=== PATIENT | male | born 1950 | race African-American/Black ===

== ENCOUNTER 2018-12-13 12:08 | Inpatient (IN) | payer MEDICARE, MEDICAID ==
[~2018-12-13] VITALS: Ht 170.2 cm; Wt 118.5 kg
--- NOTE | 2018-12-13 12:11 | NUR ---
ED Nurse Note: pt presents to ED c/o CP that started about 2 days ago. pt reports 10/10 pain that has not gotten any better and that he has not taken anything for. pt denies SOB, N/V. EMS gave pt nitro and en route the EKG was NSR. 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
[2018-12-13 12:16] VITALS: BP 129/73
[2018-12-13] MEDS ORDERED: AVAPRO300 MG ORAL (12:26)
[2018-12-13] MEDS ORDERED: LYRICA75 M1 ORAL (12:26)
[2018-12-13] MEDS ORDERED: CATAPRES0.1 MG ORAL (12:26)
[2018-12-13] MEDS ORDERED: FUROSEMIDE20 M1 ORAL (12:26)
[2018-12-13] MEDS ORDERED: ACETAMINOPHEN500 M5 ORAL (12:26)
[2018-12-13] MEDS ORDERED: AMLODIPINE BESYL5 MG ORAL (12:26)
[2018-12-13] MEDS ORDERED: TRAMADOL HCL50 MG ORAL (12:26)
[2018-12-13] MEDS ORDERED: HEPARIN2000 UNIT/ SQ (12:26)
[2018-12-13] MEDS ORDERED: PANTOPRAZOLE SO40 MG ORAL (12:26)
[2018-12-13] MEDS ORDERED: GABAPENTIN300 MG ORAL (12:26)
[2018-12-13] MEDS ORDERED: DOCUSIL100 M1 ORAL (12:26)
--- NOTE | 2018-12-13 12:57 | NUR ---
ED Nurse Note: pt refuses to let nurse start a line until he gets numbing medication. lodocaine cream not in our pyxis. called pharmacy and they said we could pick it up in 10 min
--- NOTE | 2018-12-13 13:21 | NUR ---
ED Nurse Note: pt refuses IV until he can get local lidocaine injection. I put the lidocaine gel on pt but he says he needs the shot before an IV can be inserted. ERMD aware.
[2018-12-13 13:54] VITALS: BP 140/71
--- NOTE | 2018-12-13 14:15 | Emergency Room Report ---
History of Present Illness General Chief Complaint: Chest Pain Source: Patient, EMS Present Illness HPI 68yo M p/w L parasternal nonradiating chest pain, vague, short lived, started in NH earlier today. He denies cough, sob, f/c, n/v, diarrhea, any other complaints. He can't think of inciting or alleviating/exacerbating factors. Allergies: Coded Allergies: No Known Allergies (Unverified , 12/13/18) Patient History Past Medical History: see triage record Reviewed Nursing Documentation: PMH: Agreed; PSxH: Agreed Nursing Documentation-PMH Past Medical History: No History, Except For Hx Hypertension: Yes Hx Diabetes: Yes Review of Systems All Other Systems: negative except mentioned in HPI Physical Exam Vital Signs Date Time Temp Pulse Resp B/P (MAP) Pulse Ox O2 Delivery O2 Flow Rate FiO2 12/13/18 12:07 97.3 81 18 129/73 (91) 97 Room Air Sp02 EP Interpretation: reviewed, normal General Appearance: no apparent distress, alert, non-toxic Head: normocephalic Eyes: bilateral eye normal inspection, bilateral eye PERRL, bilateral eye EOMI ENT: normal ENT inspection, hearing grossly normal, normal pharynx, no angioedema, normal voice, moist mucus membranes Neck: normal inspection, full range of motion, supple, supple/symm/no masses Respiratory: chest non-tender, lungs clear, normal breath sounds, chest symmetrical, palpation of chest normal Cardiovascular #1: normal peripheral pulses, regular rate, rhythm, edema - 2+ B /L LE edema Cardiovascular #2: 2+ radial (L) Gastrointestinal: normal inspection, non tender, soft, no mass, no guarding, no rebound Rectal: deferred Genitourinary: normal inspection, no CVA tenderness Musculoskeletal: normal range of motion, non-tender, no calf tenderness, swelling, other - R arm congenital deformity Neurologic: alert, responsive, institutional custodian III-XII nml as tested, motor strength/tone normal, sensory intact, speech normal Psychiatric: judgement/insight normal, memory normal, mood/affect normal, no suicidal/homicidal ideation Lymphatic: no adenopathy Medical Decision Making Diagnostic Impression: Primary Impression: Chest pain ER Course Patient with vague chest pain, no stemi, d/w PMD Dr. Diggs and Dr. Sarah, will admit for further workup. EKG Diagnostic Results EKG Time: 12:18 EP Interpretation: no stemi Rate: normal Rhythm: NSR ST Segments: no acute changes ASA given to the pt in ED: Yes Rhythm Strip Diag. Results Rhythm Strip Time: 14:09 EP Interpretation: yes Rate: 80 Rhythm: NSR, no PVC's, no ectopy Chest X-Ray Diagnostic Results Chest X-Ray Diagnostic Results : Chest X-Ray Ordered: Yes # of Views/Limited/Complete: 1 View Indication: Chest Pain EP Interpretation: Yes Interpretation: no consolidation, no effusion, no pneumothorax, no acute cardiopulmonary disease Impression: No acute disease Electronically Signed by: Pancho Mark MD Last Vital Signs Date Time Temp Pulse Resp B/P (MAP) Pulse Ox O2 Delivery O2 Flow Rate FiO2 12/13/18 12:50 81 18 Room Air 12/13/18 12:07 97.3 129/73 (91) 97 Disposition: ADMITTED INPATIENT Condition: Stable Referrals: Delfino Diggs MD (PCP) PANCHO MARK M.D Dec 13, 2018 14:15
--- NOTE | 2018-12-13 14:19 | Cardiac Electrophysiology PN ---
Subjective Subjective [id number] Objective Last 24 Hour Vital Signs Date Time Temp Pulse Resp B/P (MAP) Pulse Ox O2 Delivery O2 Flow Rate FiO2 12/13/18 12:50 81 18 Room Air 12/13/18 12:16 97.3 18 129/73 97 Room Air 12/13/18 12:07 97.3 81 18 129/73 (91) 97 Room Air Isacc Sarah MD Dec 13, 2018 14:19
[2018-12-13] MEDS ORDERED: Lexiscan 0.4mg/5ml syringe IV PRN (14:23)
[2018-12-13] MEDS ORDERED: Aspirin Baby 81mg ORAL ONE (14:30)
[2018-12-13 14:55] LABS: BASOPHILS % (AUTO) 1.1 % (0.0-2.0); EOSINOPHILS % (AUTO) 1.9 % (0.0-3.0); HEMATOCRIT 41.3 % (42.0-52.0); HEMOGLOBIN 13.5 G/DL (14.2-18.0); LYMPHOCYTES % (AUTO) 27.3 % (20.0-45.0); MEAN CORPUSCULAR VOLUME 94 FL (80-99); MONOCYTES % (AUTO) 9.2 % (1.0-10.0); NEUTROPHILS % (AUTO) 60.5 % (45.0-75.0); PLATELET COUNT 292 K/UL (150-450); RED BLOOD COUNT 4.37 M/UL (4.70-6.10); RED CELL DISTRIBUTION WIDTH 14.3 % (11.6-14.8)
--- NOTE | 2018-12-13 14:57 | NUR ---
ED Nurse Note: pt belonging list has been completed, swabs for MRSA, VRE & CRE have been obtained
[2018-12-13 15:09] LABS: ANION GAP 10 mmol/L (5-15); BLOOD UREA NITROGEN 24 mg/dL (7-18); CALCIUM 8.9 MG/DL (8.5-10.1); CARBON DIOXIDE 28 MMOL/L (21-32); CHLORIDE 106 MMOL/L (98-107); POTASSIUM 4.2 MMOL/L (3.5-5.1); SODIUM 144 MMOL/L (136-145)
[2018-12-13 15:15] LABS: ALANINE AMINOTRANSFERASE 26 U/L (12-78); ALBUMIN 3.3 G/DL (3.4-5.0); ALBUMIN/GLOBULIN RATIO 0.8 (1.0-2.7); ALKALINE PHOSPHATASE 84 U/L (46-116); ASPARTATE AMINO TRANSFERASE 17 U/L (15-37); BILIRUBIN,TOTAL 0.3 MG/DL (0.2-1.0)
[2018-12-13 15:36] VITALS: BP 138/79
--- NOTE | 2018-12-13 16:22 | Cardiology Report ---
APPROVED REPORT EXAM: Two-dimensional and M-mode echocardiogram with Doppler and color Doppler. INDICATION Chest Pain M-Mode DIMENSIONS IVSd0.9 (0.7-1.1cm)Left Atrium (MM)3.1 (1.6-4.0cm) LVDd5.6 (3.5-5.6cm)Aortic Root3.9 (2.0-3.7cm) PWd1.0 (0.7-1.1cm)Aortic Cusp Exc.1.5 (1.5-2.0cm) IVSs1.5 cm LVDs3.8 (2.5-4.0cm) PWs1.2 cm Other Information Quality : Limited in the middle of study . Normal left ventricular chamber size, systolic function and wall motion to extent visualized. Left ventricular ejection fraction estimated to be 60%. Mild left ventricular hypertrophy. Anterior Echo-free space, may be due to pericardial fat or effusion. All other cardiac chamber sizes are within normal limits. Aortic valve calcification with reduced cusp excursion, c/w A.S. Mildly thickened mitral valve leaflets with normal excursion. Mild mitral annulus and aortic root calcification. Pulmonic valve not well visualized. IVC at normal size with physiologic collapse . A color flow and spectral Doppler study was performed and revealed: No aortic insufficiency . Peak aortic valve gradient of 32 mm Hg and a mean of 17 mmHg. Aortic valve area 1.0 cm2 calculated by continuity equation, c/w severe A.S. Mitral inflow indicates normal left ventricular diastolic function. Trace mitral regurgitation. Trace tricuspid regurgitation. Tricuspid systolic velocities suggests peak right ventricular systolic pressure of 26mmHg.
--- NOTE | 2018-12-13 17:03 | NUR ---
ED Nurse Note: report given to ALEXANDRIA Duran
--- NOTE | 2018-12-13 17:15 | NUR ---
ED Nurse Note: Pt. brought in to Tele. Endorsed pt. care to ALEXANDRIA freire and the belongings list
--- NOTE | 2018-12-13 17:35 | NUR ---
NURSE NOTES: Patient transferred safely to floor from ED. size maker applied and pt is SR. Belongings list verified. Patient has three cellphone, tablet, laptop, cane, 29$ grady, and two visa cards. Patient refuses to to send valuables to safe. Patient is A+Ox4, denies pain/SOB. Respirations are even and unlabored on room air. IV site is patent and intact. Bed is at lowest position, brakes engaged, siderailsx2, bed alarm on, and call light within reach. Patient is in stable condition at this time; will call doctor for admission orders.
[2018-12-13 17:40] VITALS: BP 149/95
--- NOTE | 2018-12-13 18:00 | NUR ---
NURSE NOTES: Left message with Dr. Diggs about admission orders; awaiting response.
[2018-12-13] MEDS ORDERED: traMADol 50mg tab ORAL PRN (18:30)
--- NOTE | 2018-12-13 19:33 | NUR ---
HAND-OFF: Report given to Marayna Angela RN. Pt is in stable condition; plan of care endorsed.
--- NOTE | 2018-12-13 19:50 | NUR ---
NURSE NOTES: Received pt from ALEXANDRIA Duran. Pt awake, alert, and c/o pain with IV insertion. Bed in lowest position. Call light within reach. Will continue to monitor.
[2018-12-13 20:00] VITALS: BP 148/86
--- NOTE | 2018-12-13 20:18 | Diagnostic Imaging Report ---
Indication: Chest pain Technique: Single AP view of the chest. Comparison: None. Findings: Heart is not enlarged. Aorta is tortuous in caliber. There is pulmonary vascular congestion. Bibasilar subsegmental atelectasis. No pneumothorax. No pleural effusion. No acute osseous abnormality. IMPRESSION: Pulmonary vascular congestion with bibasilar subsegmental atelectasis.
--- NOTE | 2018-12-13 20:22 | NUR ---
NURSE NOTES: Called and left a message with Dr. Diggs regarding pts request for a lidocaine shot on arm before each IV insertion. He approved. Will input order and will continue to monitor.
[2018-12-13] MEDS: Heparin 5000 units/ml inj SUBQ SCH (21:00)
[2018-12-13] MEDS: HYDROcodone/Acetamin 5/325 tab ORAL PRN (21:31)
[2018-12-14] VITALS: BP 152/85
[2018-12-14 04:00] VITALS: BP 156/91
--- NOTE | 2018-12-14 04:59 | NUR ---
NURSE NOTES: Called and left a message with Dr. Diggs regarding pts BP. Awaiting call back.
[2018-12-14] MEDS: HYDROcodone/Acetamin 5/325 tab ORAL PRN (05:28)
--- NOTE | 2018-12-14 07:30 | NUR ---
HAND-OFF: Report given to ALEXANDRIA Martinez. Pt stable.
[2018-12-14 08:00] VITALS: BP 133/67
--- NOTE | 2018-12-14 08:12 | NUR ---
NURSE NOTES: Received patient from [place] Mijares. Patient is awake in bed. NPO today for stress test this morning. Patient refusing to have bed alarm on. reminded patient re: fall precautions. and call for assistance when he needed to get up in bed. will monitor patient throughout this shift.
[2018-12-14] MEDS: Irbesartan 150mg tablet ORAL SCH (09:00)
[2018-12-14] MEDS: Heparin 5000 units/ml inj SUBQ SCH ×2 (09:00→21:00)
--- NOTE | 2018-12-14 09:00 | NUR ---
NURSE NOTES: spoke with Tate from cardiology re: patients scheduled for Lexican today. Per Tate will verify with physical security manager. patient refused lab draws from last night and this am. per shift leader Rn, patient requesting lidocaine shot prior to the lab draws but she spoke with pharmacy and that we dont do that here. Dr. Sarah in this morning and seen patient. MD made aware of patients refusal for lab draws Md speak with patient the importance of getting labs to monitor patients condition but still refused. i offered to give patient his pain pill but he refused and only wanted a shot of lidocaine. will follow.
[2018-12-14] MEDS: Aspirin Baby 81mg ORAL SCH (09:38)
[2018-12-14] MEDS: Docusate 100mg cap ORAL SCH ×2 (09:39→18:09)
[2018-12-14] MEDS: Lyrica 25mg cap ORAL SCH (09:39)
--- NOTE | 2018-12-14 10:23 | Cardiac Electrophysiology PN ---
Assessment/Plan Assessment/Plan 1. CP, first troponin negative. If FU troponin negative, will proceed with stress test. 2. Bilateral LE edema On Lasix. Echo Nl EF 3. HTN, on Norvasc Avapro and Lasix DW RN Subjective Subjective Refusing blood draw without local lidocaine. No CP in SR Objective Last 24 Hour Vital Signs Date Time Temp Pulse Resp B/P (MAP) Pulse Ox O2 Delivery O2 Flow Rate FiO2 12/14/18 10:09 97.9 12/14/18 09:38 60 133/67 12/14/18 09:00 133/67 12/14/18 08:00 97.9 60 20 133/67 (89) 97 12/14/18 08:00 66 12/14/18 04:00 97.6 75 18 156/91 (112) 100 12/14/18 04:00 72 12/14/18 00:00 98.3 74 19 152/85 (107) 95 12/14/18 00:00 78 12/13/18 21:24 148/86 12/13/18 21:00 Room Air 12/13/18 20:00 98.5 81 18 148/86 (106) 94 12/13/18 20:00 78 12/13/18 17:43 80 12/13/18 17:40 97.8 77 20 149/95 (113) 96 12/13/18 17:15 98.0 68 19 135/86 95 Room Air 12/13/18 17:08 Room Air 12/13/18 15:36 17 138/79 94 Room Air 12/13/18 13:54 16 140/71 99 Room Air 12/13/18 12:50 81 18 Room Air 12/13/18 12:16 97.3 18 129/73 97 Room Air 12/13/18 12:07 97.3 81 18 129/73 (91) 97 Room Air Intake and Output 12/13/18 12/14/18 19:00 07:00 Output Total 1200 ml Balance -1200 ml Output Urine Total 1200 ml # Voids 1 6 Laboratory Tests Test 12/13/18 14:05 White Blood Count 8.0 K/UL (4.8-10.8) Red Blood Count 4.37 M/UL (4.70-6.10) L Hemoglobin 13.5 G/DL (14.2-18.0) L Hematocrit 41.3 % (42.0-52.0) L Mean Corpuscular Volume 94 FL (80-99) Mean Corpuscular Hemoglobin 30.8 PG (27.0-31.0) Mean Corpuscular Hemoglobin Concent 32.6 G/DL (32.0-36.0) Red Cell Distribution Width 14.3 % (11.6-14.8) Platelet Count 292 K/UL (150-450) Mean Platelet Volume 5.5 FL (6.5-10.1) L Neutrophils (%) (Auto) 60.5 % (45.0-75.0) Lymphocytes (%) (Auto) 27.3 % (20.0-45.0) Monocytes (%) (Auto) 9.2 % (1.0-10.0) Eosinophils (%) (Auto) 1.9 % (0.0-3.0) Basophils (%) (Auto) 1.1 % (0.0-2.0) Sodium Level 144 MMOL/L (136-145) Potassium Level 4.2 MMOL/L (3.5-5.1) Chloride Level 106 MMOL/L (98-107) Carbon Dioxide Level 28 MMOL/L (21-32) Anion Gap 10 mmol/L (5-15) Blood Urea Nitrogen 24 mg/dL (7-18) H Creatinine 1.0 MG/DL (0.55-1.30) Estimat Glomerular Filtration Rate > 60 mL/min (>60) Glucose Level 103 MG/DL (74-106) Calcium Level 8.9 MG/DL (8.5-10.1) Total Bilirubin 0.3 MG/DL (0.2-1.0) Aspartate Amino Transf (AST/SGOT) 17 U/L (15-37) Alanine Aminotransferase (ALT/SGPT) 26 U/L (12-78) Alkaline Phosphatase 84 U/L (46-116) Troponin I 0.000 ng/mL (0.000-0.056) Pro-B-Type Natriuretic Peptide 146 pg/mL (0-125) H Total Protein 7.4 G/DL (6.4-8.2) Albumin 3.3 G/DL (3.4-5.0) L Globulin 4.1 g/dL Albumin/Globulin Ratio 0.8 (1.0-2.7) L Microbiology Date/Time Source Procedure Growth Status 12/13/18 14:50 Rectum Received Objective HEENT: No JVD LUNGS: Clear CVS: RRR no GRM ABDOMEN: Soft EXT 2 plus edema Isacc Sarah MD Dec 14, 2018 10:23
--- NOTE | 2018-12-14 11:00 | NUR ---
NURSE NOTES: Spoke with Tate of cardiology. stated stress test wont be done today per Dr. Ochoa. patient must have 2 negative troponins prior to the test but pt refusing lab draws. Dr. Sarah made aware. Patient resumed on PO diet. will follow.
[2018-12-14 12:00] VITALS: BP 160/95
[2018-12-14 14:37] LABS: APPEARANCE,URINE CLEAR; BILIRUBIN, URINE NEGATIVE (NEGATIVE); COLOR,URINE PALE YELLOW; GLUCOSE, URINE (UA) NEGATIVE (NEGATIVE); KETONES,URINE NEGATIVE (NEGATIVE); LEUKOCYTE ESTERASE ,URINE 1+ (NEGATIVE); NITRITE,URINE NEGATIVE (NEGATIVE); PH,URINE 7 (4.5-8.0); PROTEIN,URINE NEGATIVE (NEGATIVE); UROBILINOGEN,URINE NORMAL MG/DL (0.0-1.0)
[2018-12-14 16:00] VITALS: BP 133/78
--- NOTE | 2018-12-14 19:59 | NUR ---
HAND-OFF: Patient stable. Plan of care endorsed.
[2018-12-14 20:00] VITALS: BP 143/79
--- NOTE | 2018-12-14 20:00 | NUR ---
NURSE NOTES: Got report from Michelle IBRAHIM. Pt in stable condition. Denies any pain. No s/s of distress or discomfort noted. Pt resting in bed comfortably. Bed in low and locked position, call light within reach bedside table within reach. Continue to monitor.
[2018-12-14] MEDS: Tamsulosin 0.4mg cap ORAL SCH (21:19)
[2018-12-15] VITALS: BP 150/82
[2018-12-15 04:00] VITALS: BP 143/79
--- NOTE | 2018-12-15 07:00 | NUR ---
HAND-OFF: Report given to [place] IBRAHIM. Endorsed plan of care.
[2018-12-15 08:00] VITALS: BP_SYST 135; BP_SYST 146; BP_DIAS 69; BP_DIAS 87
--- NOTE | 2018-12-15 08:08 | NUR ---
NURSE NOTES: Received patient alert, awake, in bed. Refusing labs at this time . patient kept NPO for stress test. No SOB/respi distress noted. Will continue to monitor patient.
[2018-12-15] MEDS: Irbesartan 150mg tablet ORAL SCH (09:00)
[2018-12-15] MEDS ORDERED: Lidocaine 1% 10mg/ml/Epi 0.005mg/ml 30ml vial INJ SCH (09:00)
[2018-12-15] MEDS ORDERED: Lidocaine 1% 10mg/ml/Epi 0.005mg/ml 30ml vial INJ PRN (09:00)
--- NOTE | 2018-12-15 09:07 | Cardiac Electrophysiology PN ---
Assessment/Plan Assessment/Plan 1. CP, first troponin negative. If repeat troponin negative, will proceed with stress test today. 2. Bilateral LE edema On Lasix. Echo Nl EF 3. HTN, on Norvasc, Avapro and Lasix 4. Noncompliant DW RN Subjective Subjective Still refusing blood draw without local lidocaine. No CP in SR. Stress test postponed to today as pt refused second blood draw for troponin Objective Last 24 Hour Vital Signs Date Time Temp Pulse Resp B/P (MAP) Pulse Ox O2 Delivery O2 Flow Rate FiO2 12/15/18 08:44 Room Air 12/15/18 08:00 97.5 72 18 146/87 (106) 97 12/15/18 08:00 97.7 62 18 135/69 (91) 96 12/15/18 04:00 98.2 83 18 143/79 (100) 96 12/15/18 04:00 77 12/15/18 00:00 98.1 81 18 150/82 (104) 95 12/15/18 00:00 81 12/14/18 21:00 Room Air 12/14/18 20:00 99.0 79 18 143/79 (100) 95 12/14/18 20:00 79 12/14/18 16:00 97.7 81 18 133/78 (96) 96 12/14/18 16:00 99 12/14/18 12:00 67 12/14/18 12:00 97.2 67 20 160/95 (116) 97 12/14/18 10:09 97.9 12/14/18 09:38 60 133/67 Intake and Output 12/14/18 12/15/18 19:00 07:00 Intake Total 120 ml 120 ml Output Total 600 ml 1500 ml Balance -480 ml -1380 ml Intake Oral 120 ml 120 ml Output Urine Total 600 ml 1500 ml # Voids 8 Laboratory Tests Test 12/14/18 14:00 Urine Color Pale yellow Urine Appearance Clear Urine pH 7 (4.5-8.0) Urine Specific [place] 1.010 (1.005-1.035) Urine Protein Negative (NEGATIVE) Urine Glucose (UA) Negative (NEGATIVE) Urine Ketones Negative (NEGATIVE) Urine Blood 1+ (NEGATIVE) H Urine Nitrite Negative (NEGATIVE) Urine Bilirubin Negative (NEGATIVE) Urine Urobilinogen Normal MG/DL (0.0-1.0) Urine Leukocyte Esterase 1+ (NEGATIVE) H Urine RBC 2-4 /HPF (0 - 0) H Urine WBC 0-2 /HPF (0 - 0) Urine Squamous Epithelial Cells Occasional /LPF Urine Bacteria Few /HPF (NONE) Microbiology Date/Time Source Procedure Growth Status 12/13/18 14:50 Nasal Nares MRSA Culture - Final NO METHICILLIN RESISTANT STAPH AUREUS... Complete 12/13/18 14:50 Rectum - Final NO CARBAPENEM-RESISTANT ENTEROBACTERI... Complete 12/13/18 14:50 Rectum Received Objective HEENT: No JVD LUNGS: Clear CVS: RRR no GRM ABDOMEN: Soft EXT 2 plus edema Isacc Sarah MD Dec 15, 2018 09:07
--- NOTE | 2018-12-15 09:11 | Urology Progress Note ---
Assessment/Plan Assessment/Plan: 1. Penile skin adhesions and mild balanitis. 2. Lower urinary tract symptoms. 3. Benign prostatic hypertrophy. 4. Rule out neurogenic bladder. 5. Microhematuria. monitor clinically flomax added check PVR consider release of penile adhesions at some point consider renal imaging study cysto later Subjective Allergies: Coded Allergies: No Known Allergies (Unverified , 12/13/18) Subjective all noted, feels fair Objective Last 24 Hour Vital Signs Date Time Temp Pulse Resp B/P (MAP) Pulse Ox O2 Delivery O2 Flow Rate FiO2 12/15/18 08:44 Room Air 12/15/18 08:00 97.5 72 18 146/87 (106) 97 12/15/18 08:00 97.7 62 18 135/69 (91) 96 12/15/18 04:00 98.2 83 18 143/79 (100) 96 12/15/18 04:00 77 12/15/18 00:00 98.1 81 18 150/82 (104) 95 12/15/18 00:00 81 12/14/18 21:00 Room Air 12/14/18 20:00 99.0 79 18 143/79 (100) 95 12/14/18 20:00 79 12/14/18 16:00 97.7 81 18 133/78 (96) 96 12/14/18 16:00 99 12/14/18 12:00 67 12/14/18 12:00 97.2 67 20 160/95 (116) 97 12/14/18 10:09 97.9 12/14/18 09:38 60 133/67 Intake and Output 12/14/18 12/15/18 19:00 07:00 Intake Total 120 ml 120 ml Output Total 600 ml 1500 ml Balance -480 ml -1380 ml Intake Oral 120 ml 120 ml Output Urine Total 600 ml 1500 ml # Voids 8 Microbiology Date/Time Source Procedure Growth Status 12/13/18 14:50 Nasal Nares MRSA Culture - Final NO METHICILLIN RESISTANT STAPH AUREUS... Complete 12/13/18 14:50 Rectum - Final NO CARBAPENEM-RESISTANT ENTEROBACTERI... Complete Current Medications Medications (Trade) Dose Ordered Sig/Alise Route PRN Reason Start Time Stop Time Status Last Admin Dose Admin Acetaminophen (Tylenol) 650 mg Q6H PRN ORAL Mild Pain/Temp > 100.5 12/13/18 18:30 01/12/19 18:29 Acetaminophen/ Hydrocodone Bitart ([place] 5/325) 1 tab Q6H PRN ORAL Severe Pain (Pain Scale 7-10) 12/13/18 18:30 12/20/18 18:29 12/14/18 05:28 Amlodipine Besylate (Norvasc) 5 mg DAILY ORAL 12/14/18 09:00 01/13/19 08:59 12/14/18 09:38 Aspirin (ASA) 81 mg DAILY ORAL 12/14/18 09:00 01/13/19 08:59 12/14/18 09:38 Clonidine HCl (Catapres Tab) 0.1 mg Q8H PRN ORAL for sbp >160 12/14/18 05:15 01/13/19 05:14 Docusate Sodium (Colace) 100 mg TWICE A DAY ORAL 12/14/18 09:00 01/13/19 08:59 12/14/18 18:09 Furosemide (Lasix) 40 mg EVERY 12 HOURS IV 12/14/18 21:00 01/13/19 20:59 12/14/18 21:20 Gabapentin (Neurontin) 300 mg Q8HR ORAL 12/13/18 22:00 01/12/19 21:59 12/14/18 21:43 Heparin Sodium (Porcine) (Heparin 5000 units/ml) 5,000 units EVERY 12 HOURS SUBQ 12/13/18 21:00 01/12/19 20:59 Irbesartan (Avapro) 300 mg DAILY ORAL 12/14/18 09:00 01/13/19 08:59 12/14/18 09:00 Lidocaine (Xylocaine 5% cream) 1 applic NEEDED PRN TOPIC For Pain 12/15/18 06:15 01/14/19 06:14 Lidocaine/ Epinephrine (Lidocaine 1% 10mg/ml/Epi 0.005mg/ml 30ml vial) 30 ml NEEDED PRN INJ To Patient Comfort 12/15/18 09:00 12/15/18 10:00 Magnesium Hydroxide (Mom) 30 ml BIDPRN PRN ORAL Constipation 12/13/18 18:30 01/12/19 18:29 Pantoprazole (Protonix) 40 mg DAILY ORAL 12/14/18 09:00 01/13/19 08:59 12/14/18 09:39 Pregabalin (Lyrica) 25 mg DAILY ORAL 12/14/18 09:00 01/13/19 08:59 12/14/18 09:39 Tamsulosin HCl (Flomax) 0.4 mg BEDTIME ORAL 12/14/18 21:00 01/13/19 20:59 12/14/18 21:19 Tramadol HCl (Ultram) 50 mg Q8H PRN ORAL Moderate Pain (Pain Scale 4-6) 12/13/18 18:30 12/20/18 18:29 12/14/18 01:15 Laboratory Tests 12/14/18 14:00: Urine Color Pale yellow, Urine Appearance Clear, Urine pH 7, Urine Specific [place] 1.010, Urine Protein Negative, Urine Glucose (UA) Negative, Urine Ketones Negative, Urine Blood 1+H, Urine Nitrite Negative, Urine Bilirubin Negative, Urine Urobilinogen Normal, Urine Leukocyte Esterase 1+H, Urine RBC 2- 4H, Urine WBC 0-2, Urine Squamous Epithelial Cells Occasional, Urine Bacteria Few Height (Feet): 5 Height (Inches): 7.00 Weight (Pounds): 250 Objective exam stable Ryan Beatty MD Dec 15, 2018 09:11
[2018-12-15] MEDS: Aspirin Baby 81mg ORAL SCH (09:43)
[2018-12-15] MEDS: Lyrica 25mg cap ORAL SCH (09:44)
[2018-12-15] MEDS: Docusate 100mg cap ORAL SCH ×2 (09:45→17:35)
[2018-12-15] MEDS: Heparin 5000 units/ml inj SUBQ SCH ×2 (09:47→21:00)
--- NOTE | 2018-12-15 10:01 | NUR ---
CASE MANAGEMENT:REVIEW 68 YR OLD MALE BIBA FROM [facility] CC: CHEST PAIN SI: ACS 97.4 81 18 129/73 97% ON RA BUN+24 TROPONIN(-) IS: NTG SPRAY X2 TREATER ASA PO TREATER ASA PO CXR : TO TELEMETRY DCP; RETURN TO [facility]
[2018-12-15 10:37] LABS: BASOPHILS % (AUTO) 0.8 % (0.0-2.0); EOSINOPHILS % (AUTO) 1.7 % (0.0-3.0); HEMATOCRIT 45.2 % (42.0-52.0); HEMOGLOBIN 14.7 G/DL (14.2-18.0); LYMPHOCYTES % (AUTO) 29.2 % (20.0-45.0); MEAN CORPUSCULAR VOLUME 94 FL (80-99); MONOCYTES % (AUTO) 7.5 % (1.0-10.0); NEUTROPHILS % (AUTO) 60.9 % (45.0-75.0); PLATELET COUNT 289 K/UL (150-450); RED BLOOD COUNT 4.82 M/UL (4.70-6.10); RED CELL DISTRIBUTION WIDTH 14.3 % (11.6-14.8); WHITE BLOOD COUNT 6.6 K/UL (4.8-10.8)
[2018-12-15 10:53] LABS: ANION GAP 4 mmol/L (5-15); BLOOD UREA NITROGEN 18 mg/dL (7-18); CALCIUM 8.4 MG/DL (8.5-10.1); CARBON DIOXIDE 31 MMOL/L (21-32); CHLORIDE 107 MMOL/L (98-107); CREATININE 0.9 MG/DL (0.55-1.30); POTASSIUM 3.7 MMOL/L (3.5-5.1); SODIUM 142 MMOL/L (136-145)
--- NOTE | 2018-12-15 11:53 | Consultation ---
DATE OF CONSULTATION: 12/13/2018 CARDIOLOGY CONSULTATION CONSULTING PHYSICIAN: Isacc Sarah M.D. REFERRING PHYSICIAN: Delfino Diggs M.D. REASON FOR CONSULTATION: Chest pain. 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 The patient denies any nausea, vomiting, diaphoresis, syncope, or presyncope. The patient came to the emergency room and the blood pressure was 129/73 with pulse of 81 and respirations of 18. Cardiology consultation was obtained for further evaluation and management. REVIEW OF SYSTEMS: Negative other than what was mentioned in the history of present illness. PAST MEDICAL HISTORY: As mentioned above. FAMILY HISTORY: Noncontributory. SOCIAL HISTORY: He lives in a assisted. He does not smoke or drink alcohol. PHYSICAL EXAMINATION: VITAL SIGNS: Show blood pressure 129/73, pulse 81, and respirations 18. He is afebrile. HEAD AND NECK: Showed no JVD. LUNGS: Decreased breath sounds on the right. CARDIOVASCULAR: Shows regular, S1 and S2 with no gallop or murmur. ABDOMEN: Soft. EXTREMITIES: No pitting edema. He has a right arm congenital deformity. DIAGNOSTIC DATA: His EKG showed sinus rhythm with left anterior fascicular block and first-degree AV block. Also, he has T-wave inversion in Labs are pending at this time. ASSESSMENT AND PLAN: 1. Chest pain. EKG does not show any acute ST-T wave abnormalities. Troponins are pending. We will get an echocardiogram as well. The patient may need a stress test for further evaluation. 2. Hypertension. Resume the patient's Norvasc 5 mg daily, clonidine 0.5 mg t.i.d., and Lasix 20 mg b.i.d., as well as Avapro 300 mg daily. 3. Neuropathic pain, on Lyrica. 4. We will also get a chest x-ray on him to evaluate for hyperplasia of the lung that he described. Thank you very much for allowing me to participate in the care of this patient. Please do not hesitate to contact me for any questions regarding my evaluation. Isacc Sarah M.D. DR: CINDA JOB#: [id number] CC:
--- NOTE | 2018-12-15 11:54 | Consultation ---
DATE OF CONSULTATION: 12/14/2018 CONSULTING PHYSICIAN: Ryan Beatty M.D. REFERRING PHYSICIAN: Delfino Diggs M.D. REASON FOR CONSULTATION: Evaluation of penile discomfort. HISTORY OF PRESENT ILLNESS: The patient is a 68-year-old gentleman. He was admitted to the hospital because of vague chest pain. He also has had a recent fall with some back pain. He has a history of circumcision about a year ago in [place]. He is complaining of some discomfort in the penile area with penile skin adhesions. He also has some voiding difficulty, feels that he has some stream and straining. PAST MEDICAL HISTORY: Significant for above, also history of hypertension, diabetes. PAST SURGICAL HISTORY: As above. CURRENT MEDICATIONS: In the hospital, the patient is on Lasix, Norvasc, Colace, Avapro, Protonix, Lyrica, aspirin, Catapres, Neurontin, heparin, Ultram, MOM. ALLERGIES: No known drug allergies. SOCIAL HISTORY: The patient is currently a nonsmoker. REVIEW OF SYSTEMS: As above. FAMILY HISTORY: Noncontributory. PHYSICAL EXAMINATION: GENERAL: Elderly male, in no acute distress. VITAL SIGNS: Temperature 97.2, blood pressure , pulse 67, respirations 20. HEENT: Normocephalic. NECK: Supple. ABDOMEN: Soft. GENITOURINARY: Circumcised phallus. There is some adhesions of the shaft skin to the virk of the glans dorsally, no significant erythema. RECTAL: Firm prostate about 40 g. EXTREMITIES: No clubbing or cyanosis. LABORATORY DATA: BUN is 24, creatinine 1.0. White count is 8.1, hemoglobin 13.5. There is no UAs. DIAGNOSTIC IMAGING STUDIES: The patient had a chest x-ray and an echocardiogram, which were reviewed. IMPRESSION: 1. Penile skin adhesions and mild balanitis. 2. Lower urinary tract symptoms. 3. Benign prostatic hypertrophy. 4. Rule out neurogenic bladder. PLAN AND DISCUSSION: Again the patient does have some skin adhesions of his penile shaft and glans secondary to circumcision. At some point, these can be released and this can be done electively. Topical steroids may also help. He has some lower urinary tract symptoms secondary to BPH, possible neurogenic bladder. At this time, I will start him on Flomax empirically. UA will be obtained. Any further recommendations will be forthcoming. Thank you, Dr. Diggs, for asking me to see this patient in consultation. Ryan Beatty M.D. DR: [place] JOB#: [id number] CC:
--- NOTE | 2018-12-15 11:54 | Consultation ---
DATE OF CONSULTATION: 12/14/2018 GASTROENTEROLOGY CONSULTATION CONSULTING PHYSICIAN: Evelina Jeffers M.D. CHIEF COMPLAINT: I was asked to see this patient by Dr. Delfino Diggs for evaluation of hematochezia. HISTORY OF PRESENT ILLNESS: The patient is a pleasant 68-year-old man with multiple medical problems who was admitted with chest pain and he is being seen by pharmaceutical engineer. The patient states the chest pain was parasternal, nonradiating, and short lived started at retirement. He denies any nausea, vomiting, or heartburn, but he does complain of some intermittent hematochezia. He has never had a colonoscopy. Breathing is painless. PAST MEDICAL HISTORY: History of hypertension, history of diabetes, and history of arthritis. FAMILY HISTORY: Positive for breast cancer in mother and colon cancer in father. SOCIAL HISTORY: The patient is single. He has 7 children. He does not smoke or drink alcohol. MEDICATIONS: Lasix, [place], Tylenol, aspirin, heparin, Ultram, Lyrica, Protonix, Avapro, Neurontin, Norvasc, Colace. REVIEW OF SYSTEMS: Otherwise negative. PHYSICAL EXAMINATION: GENERAL: This is a pleasant man, seen in his room. HEENT: Normocephalic and atraumatic. Sclerae anicteric. Oropharynx clear. NECK: Supple. CHEST: Clear to auscultation. CARDIOVASCULAR: Revealed a regular rate. ABDOMEN: Soft. Good bowel sounds. EXTREMITIES: Revealed 1+ edema bilaterally. NEUROLOGIC: Grossly nonfocal. LABORATORY DATA: Noted. ASSESSMENT: This patient presents with intermittent hematochezia of unclear etiology. The differential diagnosis most notably includes hemorrhoidal disorders. However, the patient has not had a colonoscopy and therefore an examination of the entire colon will be appropriate. The indications, risks, alternatives, and possible complications of the procedure were explained to the patient and he wishes to proceed. RECOMMENDATIONS: 1. Cardiology followup, evaluation, and clearance. 2. PRN laxative. 3. Follow laboratory parameters. 4. Colonoscopy once cleared from a cardiac standpoint. Thank you for asking me to participate in the care of this patient. Evelina Jeffers M.D. DR: DELMI JOB#: [id number] CC: NORMA
--- NOTE | 2018-12-15 11:55 | History and Physical Report ---
DATE OF ADMISSION: 12/13/2018 HISTORY OF PRESENT ILLNESS: The patient is a very pleasant unfortunate 68-year-old gentleman with history of hypertension, history of hypoplasia, history of cellulitis of his lower extremities in the past, history of L4 compression fracture who resides at [facility]. The patient called me yesterday in the office stating he has been having chest pain and wanted to go to the hospital. The patient was transferred to the hospital for further evaluation. He admits to intermittent chest pain. No radiation to his arms. No nausea or vomiting. No pleuritic symptoms. No cough. No fevers or chills. No abdominal pain. He does admit to having irritation in his penis at the site that he has previously had his circumcision. 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 SOCIAL HISTORY: The patient recently moved to [place]. Denies any smoking or alcohol use. He currently resides in a [facility], [facility]. ALLERGIES: No known. MEDICATIONS: Please see his reconciled med list. PHYSICAL EXAMINATION: GENERAL: He is well developed, well nourished. Currently in no apparent distress. VITAL SIGNS: Blood pressure 133/78, temperature 97.7, pulse 81, respirations 18, pulse ox 96 to 97% on room air. HEENT: Head is normocephalic, atraumatic. Pupils are equal, reactive to light. Extraocular muscles are intact. Eyes are anicteric. NECK: Supple. No JVP. No bruits. LUNGS: Clear. HEART: Regular rate and rhythm without murmurs, rubs, or gallops. ABDOMEN: Soft. Positive bowel sounds. Nondistended. Nontender. EXTREMITIES: No clubbing, cyanosis. He has got trace edema. NEUROLOGIC: Nonfocal. Right arm, he has got hypoplasia. GENITOURINARY: He is circumcised. LABORATORY DATA: Labs reveal a white count of 8, hemoglobin 13.5, hematocrit 41.3, platelet count 292. Sodium 144, potassium 4.2, chloride 106, bicarb 28, BUN 24, creatinine 1.02. Troponin 0.00. ProBNP 146. Total protein 7.4. Urine with 3 to 4 rbc's, 0 to 2 wbc's, 1+ leukocyte esterase, 2+ blood. EKG noted. Chest x-ray reveals pulmonary vascular congestion, bibasilar segmental atelectasis. ASSESSMENT AND PLAN: The patient is an unfortunate 68-year-old gentleman presented to the emergency room. He was sent in from his rehab secondary to complaints of chest pain. Denies any shortness of breath. No nausea, vomiting, or diaphoresis. The patient will be admitted to a monitored bed. I have ordered lower extremity venous Dopplers. I will place him on DVT and ulcer prophylaxis. I also ordered D-dimer on him. I have asked Cardiology consultation to see him from Dr. Sarah. The patient also complains of irritation at the circumcision site and I have asked Dr. Beatty from Urology see him as well. The patient should be on DVT and ulcer prophylaxis. Delfino Diggs M.D. DR: AGATHA JOB#: [id number] CC:
[2018-12-15 12:00] VITALS: BP 150/98
--- NOTE | 2018-12-15 12:00 | Consultation ---
History of Present Illness General Date patient seen: Dec 15, 2018 Time patient seen: 11:30 Chief Complaint: Chest Pain Present Illness HPI Pt seen bedside for acute chest pain. He denies any pain to B/L L/E. He denies any open wounds to B/L L/E. Allergies: Coded Allergies: No Known Allergies (Unverified , 12/13/18) Medication History Scheduled Acetaminophen (Acetaminophen), 1,000 MG ORAL TID, (Reported) Amlodipine Besylate* (Amlodipine Besylate*), 5 MG ORAL DAILY, (Reported) Clonidine Hcl* (Catapres*), 0.1 MG ORAL TID, (Reported) Docusate Sodium* (Docusil*), 100 MG ORAL TWICE A DAY, (Reported) Furosemide* (Lasix*), 20 MG ORAL BID, (Reported) Gabapentin* (Gabapentin*), 300 MG ORAL TID, (Reported) Heparin Sodium,Porcine/Ns/Pf (Heparin), 5,000 UNIT SQ BID, (Reported) Irbesartan* (Avapro*), 300 MG ORAL DAILY, (Reported) Pantoprazole* (Pantoprazole*), 40 MG ORAL DAILY, (Reported) Pregabalin* (Lyrica*), 25 MG ORAL DAILY, (Reported) Scheduled PRN Tramadol Hcl* (Ultram*), 50 MG ORAL TID PRN for For Pain, (Reported) Patient History Healthcare decision maker Resuscitation status Full Code Advanced Directive on File No Physical Exam Physical Exam Narrative Focused B/L L/E. Derm: No open wounds, ascending erythema, or edema is noted. Interdigital spaces intact. Vasc: +2/4 DP/PT pulses. FILLING HAULER WEAVING intact. Neuro: SILT intact. MSK: No gross deformities noted. Last 24 Hour Vital Signs Date Time Temp Pulse Resp B/P (MAP) Pulse Ox O2 Delivery O2 Flow Rate FiO2 12/15/18 10:14 97.5 12/15/18 09:44 72 146/87 12/15/18 09:00 146/87 12/15/18 08:44 Room Air 12/15/18 08:00 97.5 72 18 146/87 (106) 97 12/15/18 08:00 71 12/15/18 08:00 97.7 62 18 135/69 (91) 96 12/15/18 04:00 98.2 83 18 143/79 (100) 96 12/15/18 04:00 77 12/15/18 00:00 98.1 81 18 150/82 (104) 95 12/15/18 00:00 81 12/14/18 21:00 Room Air 12/14/18 20:00 99.0 79 18 143/79 (100) 95 12/14/18 20:00 79 12/14/18 16:00 97.7 81 18 133/78 (96) 96 12/14/18 16:00 99 12/14/18 12:00 67 12/14/18 12:00 97.2 67 20 160/95 (116) 97 Intake and Output 12/14/18 12/15/18 19:00 07:00 Intake Total 120 ml 120 ml Output Total 600 ml 1500 ml Balance -480 ml -1380 ml Intake Oral 120 ml 120 ml Output Urine Total 600 ml 1500 ml # Voids 8 Laboratory Tests Test 12/14/18 14:00 12/15/18 10:25 Urine Color Pale yellow Urine Appearance Clear Urine pH 7 (4.5-8.0) Urine Specific Ackerman 1.010 (1.005-1.035) Urine Protein Negative (NEGATIVE) Urine Glucose (UA) Negative (NEGATIVE) Urine Ketones Negative (NEGATIVE) Urine Blood 1+ (NEGATIVE) H Urine Nitrite Negative (NEGATIVE) Urine Bilirubin Negative (NEGATIVE) Urine Urobilinogen Normal MG/DL (0.0-1.0) Urine Leukocyte Esterase 1+ (NEGATIVE) H Urine RBC 2-4 /HPF (0 - 0) H Urine WBC 0-2 /HPF (0 - 0) Urine Squamous Epithelial Cells Occasional /LPF Urine Bacteria Few /HPF (NONE) White Blood Count 6.6 K/UL (4.8-10.8) Red Blood Count 4.82 M/UL (4.70-6.10) Hemoglobin 14.7 G/DL (14.2-18.0) Hematocrit 45.2 % (42.0-52.0) Mean Corpuscular Volume 94 FL (80-99) Mean Corpuscular Hemoglobin 30.4 PG (27.0-31.0) Mean Corpuscular Hemoglobin Concent 32.5 G/DL (32.0-36.0) Red Cell Distribution Width 14.3 % (11.6-14.8) Platelet Count 289 K/UL (150-450) Mean Platelet Volume 5.6 FL (6.5-10.1) L Neutrophils (%) (Auto) 60.9 % (45.0-75.0) Lymphocytes (%) (Auto) 29.2 % (20.0-45.0) Monocytes (%) (Auto) 7.5 % (1.0-10.0) Eosinophils (%) (Auto) 1.7 % (0.0-3.0) Basophils (%) (Auto) 0.8 % (0.0-2.0) D-Dimer 1.02 mg/L FEU (0.00-0.49) H Sodium Level 142 MMOL/L (136-145) Potassium Level 3.7 MMOL/L (3.5-5.1) Chloride Level 107 MMOL/L (98-107) Carbon Dioxide Level 31 MMOL/L (21-32) Anion Gap 4 mmol/L (5-15) L Blood Urea Nitrogen 18 mg/dL (7-18) Creatinine 0.9 MG/DL (0.55-1.30) Estimat Glomerular Filtration Rate > 60 mL/min (>60) Glucose Level 101 MG/DL (74-106) Calcium Level 8.4 MG/DL (8.5-10.1) L Troponin I 0.012 ng/mL (0.000-0.056) Pro-B-Type Natriuretic Peptide 125 pg/mL (0-125) Height (Feet): 5 Height (Inches): 7.00 Weight (Pounds): 250 Medications Current Medications Medications (Trade) Dose Ordered Sig/Alise Route PRN Reason Start Time Stop Time Status Last Admin Dose Admin Acetaminophen (Tylenol) 650 mg Q6H PRN ORAL Mild Pain/Temp > 100.5 12/13/18 18:30 01/12/19 18:29 Acetaminophen/ Hydrocodone Bitart ([place] 5/325) 1 tab Q6H PRN ORAL Severe Pain (Pain Scale 7-10) 12/13/18 18:30 12/20/18 18:29 12/14/18 05:28 Amlodipine Besylate (Norvasc) 5 mg DAILY ORAL 12/14/18 09:00 01/13/19 08:59 12/15/18 09:44 Aspirin (ASA) 81 mg DAILY ORAL 12/14/18 09:00 01/13/19 08:59 12/15/18 09:43 Clonidine HCl (Catapres Tab) 0.1 mg Q8H PRN ORAL for sbp >160 12/14/18 05:15 01/13/19 05:14 Docusate Sodium (Colace) 100 mg TWICE A DAY ORAL 12/14/18 09:00 01/13/19 08:59 12/15/18 09:45 Furosemide (Lasix) 40 mg EVERY 12 HOURS IV 12/14/18 21:00 01/13/19 20:59 12/15/18 09:45 Gabapentin (Neurontin) 300 mg Q8HR ORAL 12/13/18 22:00 01/12/19 21:59 12/14/18 21:43 Heparin Sodium (Porcine) (Heparin 5000 units/ml) 5,000 units EVERY 12 HOURS SUBQ 12/13/18 21:00 01/12/19 20:59 12/15/18 09:47 Irbesartan (Avapro) 300 mg DAILY ORAL 12/14/18 09:00 01/13/19 08:59 12/15/18 09:00 Lidocaine (Xylocaine 5% cream) 1 applic NEEDED PRN TOPIC For Pain 12/15/18 06:15 01/14/19 06:14 12/15/18 10:36 Magnesium Hydroxide (Mom) 30 ml BIDPRN PRN ORAL Constipation 12/13/18 18:30 01/12/19 18:29 Pantoprazole (Protonix) 40 mg DAILY ORAL 12/14/18 09:00 01/13/19 08:59 12/15/18 09:43 Pregabalin (Lyrica) 25 mg DAILY ORAL 12/14/18 09:00 01/13/19 08:59 12/15/18 09:44 Tamsulosin HCl (Flomax) 0.4 mg BEDTIME ORAL 12/14/18 21:00 01/13/19 20:59 12/14/18 21:19 Tramadol HCl (Ultram) 50 mg Q8H PRN ORAL Moderate Pain (Pain Scale 4-6) 12/13/18 18:30 12/20/18 18:29 12/14/18 01:15 Assessment/Plan Assessment/Plan: A: - Acute Chest Pain - CHF - DM - Arthritis P: - Pt seen and evaluated. - Discuss findings with patient. - No open wounds are noted, no acute SOI are noted. - Will order B/L Foot XR, R/O OM or deep soft tissue infection. - B/L foot XR ordered. - Cont Tx per specialists. - No acute surgical intervention required at this time. - Podiatry will cont to monitor. Graham Payne DPM Dec 15, 2018 12:00
--- NOTE | 2018-12-15 12:51 | NUR ---
NURSE NOTES: Dr. Dexter and Dewey notified Stress test not able to be done at this time per NH tech because of not enough isotope.
--- NOTE | 2018-12-15 14:17 | NUR ---
NURSE NOTES: stress test unable to be performed due to facility maintenance technician unable to bring the right amount of isotope due to weight of the patient. Therefore, pt will have to stay here until tuesday.
[2018-12-15 16:00] VITALS: BP 108/73
--- NOTE | 2018-12-15 17:41 | General Progress Note ---
Assessment/Plan Assessment/Plan: Assessment - chest pain - CAD/FL - Hematochezia - HTN - DM Recommendations - po as tolerated - await completion of cardiac w/u - colonoscopy once above all completed - Subjective Allergies: Coded Allergies: No Known Allergies (Unverified , 12/13/18) Subjective feel OK some constipation stress test postponed for Tuesday Objective Last 24 Hour Vital Signs Date Time Temp Pulse Resp B/P (MAP) Pulse Ox O2 Delivery O2 Flow Rate FiO2 12/15/18 16:00 97.7 86 18 108/73 (85) 94 12/15/18 12:00 73 12/15/18 12:00 98.2 78 18 150/98 (115) 97 12/15/18 10:14 97.5 12/15/18 09:44 72 146/87 12/15/18 09:00 146/87 12/15/18 08:44 Room Air 12/15/18 08:00 97.5 72 18 146/87 (106) 97 12/15/18 08:00 71 12/15/18 08:00 97.7 62 18 135/69 (91) 96 12/15/18 04:00 98.2 83 18 143/79 (100) 96 12/15/18 04:00 77 12/15/18 00:00 98.1 81 18 150/82 (104) 95 12/15/18 00:00 81 12/14/18 21:00 Room Air 12/14/18 20:00 99.0 79 18 143/79 (100) 95 12/14/18 20:00 79 Intake and Output 12/14/18 12/15/18 19:00 07:00 Intake Total 120 ml 120 ml Output Total 600 ml 1500 ml Balance -480 ml -1380 ml Intake Oral 120 ml 120 ml Output Urine Total 600 ml 1500 ml # Voids 8 Laboratory Tests 12/15/18 10:25: White Blood Count 6.6, Red Blood Count 4.82, Hemoglobin 14.7, Hematocrit 45.2, Mean Corpuscular Volume 94, Mean Corpuscular Hemoglobin 30.4, Mean Corpuscular Hemoglobin Concent 32.5, Red Cell Distribution Width 14.3, Platelet Count 289, Mean Platelet Volume 5.6L, Neutrophils (%) (Auto) 60.9, Lymphocytes (%) (Auto) 29.2, Monocytes (%) (Auto) 7.5, Eosinophils (%) (Auto) 1.7, Basophils (%) (Auto ) 0.8, D-Dimer 1.02H, Sodium Level 142, Potassium Level 3.7, Chloride Level 107 , Carbon Dioxide Level 31, Anion Gap 4L, Blood Urea Nitrogen 18, Creatinine 0.9 , Estimat Glomerular Filtration Rate > 60, Glucose Level 101, Calcium Level 8.4L , Troponin I 0.012, Pro-B-Type Natriuretic Peptide 125 Height (Feet): 5 Height (Inches): 7.00 Weight (Pounds): 250 Objective Obese AA man NCAT supple CTA RR abd soft NT ND no edema Evelina Jeffers MD Dec 15, 2018 17:41
--- NOTE | 2018-12-15 19:30 | NUR ---
HAND-OFF: Report given to ALEXANDRIA Rocha. Endorsed pending stress test.
[2018-12-15 20:00] VITALS: BP 139/88
[2018-12-15] MEDS: Tamsulosin 0.4mg cap ORAL SCH (21:39)
--- NOTE | 2018-12-15 23:51 | General Progress Note ---
Assessment/Plan Assessment/Plan: cp dicomfort penis hematochezia cad awating stress test urology eval apprecaited will need colonspy when cardiac cleared dvt an dulcer rpohylaxis Subjective Allergies: Coded Allergies: No Known Allergies (Unverified , 12/13/18) Subjective co dicomfor penis wwhere his foresikin was removed no chest painor sob had some hematochezia before Objective Last 24 Hour Vital Signs Date Time Temp Pulse Resp B/P (MAP) Pulse Ox O2 Delivery O2 Flow Rate FiO2 12/15/18 16:00 97.7 86 18 108/73 (85) 94 12/15/18 16:00 85 12/15/18 12:00 73 12/15/18 12:00 98.2 78 18 150/98 (115) 97 12/15/18 10:14 97.5 12/15/18 09:44 72 146/87 12/15/18 09:00 146/87 12/15/18 08:44 Room Air 12/15/18 08:00 97.5 72 18 146/87 (106) 97 12/15/18 08:00 71 12/15/18 08:00 97.7 62 18 135/69 (91) 96 12/15/18 04:00 98.2 83 18 143/79 (100) 96 12/15/18 04:00 77 12/15/18 00:00 98.1 81 18 150/82 (104) 95 12/15/18 00:00 81 Intake and Output 12/14/18 12/15/18 19:00 07:00 Intake Total 120 ml 120 ml Output Total 600 ml 1500 ml Balance -480 ml -1380 ml Intake Oral 120 ml 120 ml Output Urine Total 600 ml 1500 ml # Voids 8 Laboratory Tests 12/15/18 10:25: White Blood Count 6.6, Red Blood Count 4.82, Hemoglobin 14.7, Hematocrit 45.2, Mean Corpuscular Volume 94, Mean Corpuscular Hemoglobin 30.4, Mean Corpuscular Hemoglobin Concent 32.5, Red Cell Distribution Width 14.3, Platelet Count 289, Mean Platelet Volume 5.6L, Neutrophils (%) (Auto) 60.9, Lymphocytes (%) (Auto) 29.2, Monocytes (%) (Auto) 7.5, Eosinophils (%) (Auto) 1.7, Basophils (%) (Auto ) 0.8, D-Dimer 1.02H, Sodium Level 142, Potassium Level 3.7, Chloride Level 107 , Carbon Dioxide Level 31, Anion Gap 4L, Blood Urea Nitrogen 18, Creatinine 0.9 , Estimat Glomerular Filtration Rate > 60, Glucose Level 101, Calcium Level 8.4L , Troponin I 0.012, Pro-B-Type Natriuretic Peptide 125 Height (Feet): 5 Height (Inches): 7.00 Weight (Pounds): 250 General Appearance: WD/WN, no apparent distress Neck: supple Cardiovascular: normal rate Respiratory/Chest: lungs clear Abdomen: soft Delfino Diggs MD Dec 15, 2018 23:51
[2018-12-16] VITALS: BP 154/94
[2018-12-16 04:00] VITALS: BP 150/98
--- NOTE | 2018-12-16 07:00 | NUR ---
HAND-OFF: Report given to Damon IBRAHIM. Endorsed plan of care.
[2018-12-16 08:05] VITALS: BP 165/106
--- NOTE | 2018-12-16 08:15 | Urology Progress Note ---
Assessment/Plan Assessment/Plan: 1. Penile skin adhesions and mild balanitis. 2. Lower urinary tract symptoms. 3. Benign prostatic hypertrophy. 4. Rule out neurogenic bladder. 5. Microhematuria. monitor clinically flomax added consider release of penile adhesions at some point consider renal imaging study cysto later renal fxn stable Subjective Allergies: Coded Allergies: No Known Allergies (Unverified , 12/13/18) Subjective all noted, feels fair, PVR reported zero cc Objective Last 24 Hour Vital Signs Date Time Temp Pulse Resp B/P (MAP) Pulse Ox O2 Delivery O2 Flow Rate FiO2 12/16/18 08:05 98.0 69 20 165/106 (125) 98 12/16/18 04:00 86 12/16/18 04:00 98.0 74 16 150/98 (115) 99 12/16/18 00:00 77 12/16/18 00:00 98.4 68 16 154/94 (114) 98 12/15/18 21:00 Room Air 12/15/18 20:00 98.7 75 16 139/88 (105) 97 12/15/18 20:00 85 12/15/18 16:00 97.7 86 18 108/73 (85) 94 12/15/18 16:00 85 12/15/18 12:00 73 12/15/18 12:00 98.2 78 18 150/98 (115) 97 12/15/18 10:14 97.5 12/15/18 09:44 72 146/87 12/15/18 09:00 146/87 12/15/18 08:44 Room Air Intake and Output 12/15/18 12/16/18 19:00 07:00 Intake Total 360 ml Output Total 600 ml Balance -240 ml Intake Oral 360 ml Output Urine Total 600 ml Post Void Residual 0 ml Bladder Scan Volume Amount <10 ml # Voids 3 Microbiology Date/Time Source Procedure Growth Status 12/13/18 14:50 Nasal Nares MRSA Culture - Final NO METHICILLIN RESISTANT STAPH AUREUS... Complete 12/13/18 14:50 Rectum - Final NO CARBAPENEM-RESISTANT ENTEROBACTERI... Complete Current Medications Medications (Trade) Dose Ordered Sig/Alise Route PRN Reason Start Time Stop Time Status Last Admin Dose Admin Acetaminophen (Tylenol) 650 mg Q6H PRN ORAL Mild Pain/Temp > 100.5 12/13/18 18:30 01/12/19 18:29 Acetaminophen/ Hydrocodone Bitart ([place] 5/325) 1 tab Q6H PRN ORAL Severe Pain (Pain Scale 7-10) 12/13/18 18:30 12/20/18 18:29 12/14/18 05:28 Amlodipine Besylate (Norvasc) 5 mg DAILY ORAL 12/14/18 09:00 01/13/19 08:59 12/15/18 09:44 Aspirin (ASA) 81 mg DAILY ORAL 12/14/18 09:00 01/13/19 08:59 12/15/18 09:43 Clonidine HCl (Catapres Tab) 0.1 mg Q8H PRN ORAL for sbp >160 12/14/18 05:15 01/13/19 05:14 Docusate Sodium (Colace) 100 mg TWICE A DAY ORAL 12/14/18 09:00 01/13/19 08:59 12/15/18 17:35 Furosemide (Lasix) 40 mg EVERY 12 HOURS IV 12/14/18 21:00 01/13/19 20:59 12/15/18 21:39 Gabapentin (Neurontin) 300 mg Q8HR ORAL 12/13/18 22:00 01/12/19 21:59 12/15/18 21:38 Heparin Sodium (Porcine) (Heparin 5000 units/ml) 5,000 units EVERY 12 HOURS SUBQ 12/13/18 21:00 01/12/19 20:59 12/15/18 09:47 Irbesartan (Avapro) 300 mg DAILY ORAL 12/14/18 09:00 01/13/19 08:59 12/15/18 09:00 Lidocaine (Xylocaine 5% cream) 1 applic NEEDED PRN TOPIC For Pain 12/15/18 06:15 01/14/19 06:14 12/15/18 10:36 Magnesium Hydroxide (Mom) 30 ml BIDPRN PRN ORAL Constipation 12/13/18 18:30 01/12/19 18:29 Pantoprazole (Protonix) 40 mg DAILY ORAL 12/14/18 09:00 01/13/19 08:59 12/15/18 09:43 Pregabalin (Lyrica) 25 mg DAILY ORAL 12/14/18 09:00 01/13/19 08:59 12/15/18 09:44 Tamsulosin HCl (Flomax) 0.4 mg BEDTIME ORAL 12/14/18 21:00 01/13/19 20:59 12/15/18 21:39 Tramadol HCl (Ultram) 50 mg Q8H PRN ORAL Moderate Pain (Pain Scale 4-6) 12/13/18 18:30 12/20/18 18:29 12/14/18 01:15 Laboratory Tests 12/15/18 10:25: White Blood Count 6.6, Red Blood Count 4.82, Hemoglobin 14.7, Hematocrit 45.2, Mean Corpuscular Volume 94, Mean Corpuscular Hemoglobin 30.4, Mean Corpuscular Hemoglobin Concent 32.5, Red Cell Distribution Width 14.3, Platelet Count 289, Mean Platelet Volume 5.6L, Neutrophils (%) (Auto) 60.9, Lymphocytes (%) (Auto) 29.2, Monocytes (%) (Auto) 7.5, Eosinophils (%) (Auto) 1.7, Basophils (%) (Auto ) 0.8, D-Dimer 1.02H, Sodium Level 142, Potassium Level 3.7, Chloride Level 107 , Carbon Dioxide Level 31, Anion Gap 4L, Blood Urea Nitrogen 18, Creatinine 0.9 , Estimat Glomerular Filtration Rate > 60, Glucose Level 101, Calcium Level 8.4L , Troponin I 0.012, Pro-B-Type Natriuretic Peptide 125 Height (Feet): 5 Height (Inches): 7.00 Weight (Pounds): 250 Objective exam stable Ryan Beatty MD Dec 16, 2018 08:15
[2018-12-16] MEDS: Aspirin Baby 81mg ORAL SCH (08:29)
[2018-12-16] MEDS: Irbesartan 150mg tablet ORAL SCH (08:29)
[2018-12-16] MEDS: Lyrica 25mg cap ORAL SCH (08:30)
[2018-12-16] MEDS: Docusate 100mg cap ORAL SCH ×2 (08:30→18:35)
[2018-12-16] MEDS: Heparin 5000 units/ml inj SUBQ SCH ×2 (08:35→22:00)
--- NOTE | 2018-12-16 08:41 | NUR ---
NURSE NOTES: Mr Grant was sleeping when received report from ALEXANDRIA Rocha. By 8 am patient awake, aox4 with calm, cooperative affect eating breakfast. Voided clear yellow in urinal. BP noted elevated--gave morning anti-HTN meds per eMar. Bed in low, locked position with call vincent in reach. Foot bilat xR being done now. Dr Beatty at bedside this morning. Cont'd with plan of care.
--- NOTE | 2018-12-16 09:19 | Diagnostic Imaging Report ---
EXAM: XR Right Foot Complete, 3 or More Views CLINICAL HISTORY: PAIN TECHNIQUE: Frontal, lateral and oblique views of the right foot. COMPARISON: X-rays of the contralateral left foot obtained the same date. FINDINGS: Bones joints: Subtle cortical irregularity along the medial margin of the great toe proximal and distal phalanges adjacent to the interphalangeal joint. Mild degenerative narrowing within the metatarsophalangeal joints. No visible fracture or dislocation. No osseous erosions. Incidental note of accessory ossicle adjacent to the lateral margin of the cuboid. Soft tissues: Unremarkable. No radiopaque foreign body. IMPRESSION: Subtle cortical irregularity along the medial margin of the great toe proximal and distal phalanges adjacent to the interphalangeal joint. This may be related to degenerative change versus subtle age- indeterminate fracture. Recommend correlation with point tenderness.
--- NOTE | 2018-12-16 09:23 | Diagnostic Imaging Report ---
EXAM: XR Left Foot Complete, 3 or More Views CLINICAL HISTORY: PAIN TECHNIQUE: Frontal, lateral and oblique views of the left foot. COMPARISON: X-rays of the contralateral right foot obtained the same date FINDINGS: Bones joints: No visible fracture or dislocation. No osseous erosions. Joint spaces appear unremarkable. Incidental note of accessory ossicles adjacent to the lateral margin of the cuboid. Soft tissues: Unremarkable. No radiopaque foreign body. IMPRESSION: No acute findings.
--- NOTE | 2018-12-16 09:35 | General Progress Note ---
Assessment/Plan Assessment/Plan: Assessment - chest pain - CAD/MO - Hematochezia - HTN - DM Recommendations - po as tolerated - await completion of cardiac w/u - colonoscopy once above all completed Subjective ROS Limited/Unobtainable: Yes Allergies: Coded Allergies: No Known Allergies (Unverified , 12/13/18) Objective Last 24 Hour Vital Signs Date Time Temp Pulse Resp B/P (MAP) Pulse Ox O2 Delivery O2 Flow Rate FiO2 12/16/18 09:29 98.0 12/16/18 08:30 69 165/106 12/16/18 08:29 165/106 12/16/18 08:05 98.0 69 20 165/106 (125) 98 12/16/18 04:00 86 12/16/18 04:00 98.0 74 16 150/98 (115) 99 12/16/18 00:00 77 12/16/18 00:00 98.4 68 16 154/94 (114) 98 12/15/18 21:00 Room Air 12/15/18 20:00 98.7 75 16 139/88 (105) 97 12/15/18 20:00 85 12/15/18 16:00 97.7 86 18 108/73 (85) 94 12/15/18 16:00 85 12/15/18 12:00 73 12/15/18 12:00 98.2 78 18 150/98 (115) 97 12/15/18 09:44 72 146/87 Intake and Output 12/15/18 12/16/18 19:00 07:00 Intake Total 360 ml Output Total 600 ml Balance -240 ml Intake Oral 360 ml Output Urine Total 600 ml Post Void Residual 0 ml Bladder Scan Volume Amount <10 ml # Voids 3 Laboratory Tests 12/15/18 10:25: White Blood Count 6.6, Red Blood Count 4.82, Hemoglobin 14.7, Hematocrit 45.2, Mean Corpuscular Volume 94, Mean Corpuscular Hemoglobin 30.4, Mean Corpuscular Hemoglobin Concent 32.5, Red Cell Distribution Width 14.3, Platelet Count 289, Mean Platelet Volume 5.6L, Neutrophils (%) (Auto) 60.9, Lymphocytes (%) (Auto) 29.2, Monocytes (%) (Auto) 7.5, Eosinophils (%) (Auto) 1.7, Basophils (%) (Auto ) 0.8, D-Dimer 1.02H, Sodium Level 142, Potassium Level 3.7, Chloride Level 107 , Carbon Dioxide Level 31, Anion Gap 4L, Blood Urea Nitrogen 18, Creatinine 0.9 , Estimat Glomerular Filtration Rate > 60, Glucose Level 101, Calcium Level 8.4L , Troponin I 0.012, Pro-B-Type Natriuretic Peptide 125 Height (Feet): 5 Height (Inches): 7.00 Weight (Pounds): 250 General Appearance: no apparent distress EENT: normal ENT inspection Neck: normal alignment Cardiovascular: normal rate Respiratory/Chest: decreased breath sounds Abdomen: normal bowel sounds, non tender, soft Extremities: non-tender Brian Currie MD Dec 16, 2018 09:35
[2018-12-16 12:00] VITALS: BP 139/86
--- NOTE | 2018-12-16 12:54 | NUR ---
NURSE NOTES: Patient aox4 with calm affect. Voided multiple times after lasix given this morning--clear yellow in urinal. Currently up in chair after working with PT eating lunch. R big toe is focal point of pain on foot per patient--Stated "on a scale of 1 to 10, it's a 20". Patient appears calm and watching tv. medicated per APR. cont'd to monitor.
[2018-12-16] MEDS: HYDROcodone/Acetamin 5/325 tab ORAL PRN (13:01)
--- NOTE | 2018-12-16 15:41 | NUR ---
PT note PT angel completed, treatment initiated. Patient has back pain, muscle weakness and and decreased balance. Patient needs PT to increase his muscle strength and balance and decrease pain to improve his safety in mobility and gait. Addendum: 12/16/18 at 1541 by KELSIE SINCLAIR PT Amended: Links added.
[2018-12-16 15:50] VITALS: BP 105/73
--- NOTE | 2018-12-16 16:14 | Cardiac Electrophysiology PN ---
Assessment/Plan Assessment/Plan 1. CP, troponins are negative, will proceed with stress test Tuesday 2. Bilateral LE edema On Lasix. Echo Nl EF 3. HTN, on Norvasc, Avapro and Lasix 4. Noncompliant DW RN Subjective Subjective No CP in SR. Stress test postponed to Tuesday due to lack of Nuclear material Objective Last 24 Hour Vital Signs Date Time Temp Pulse Resp B/P (MAP) Pulse Ox O2 Delivery O2 Flow Rate FiO2 12/16/18 15:50 97.7 81 20 105/73 (84) 97 12/16/18 13:32 98.4 12/16/18 12:00 98.4 75 20 139/86 (103) 97 12/16/18 12:00 84 12/16/18 10:09 98.0 12/16/18 09:00 Room Air 12/16/18 08:30 69 165/106 12/16/18 08:29 165/106 12/16/18 08:05 98.0 69 20 165/106 (125) 98 12/16/18 08:00 70 12/16/18 04:00 86 12/16/18 04:00 98.0 74 16 150/98 (115) 99 12/16/18 00:00 77 12/16/18 00:00 98.4 68 16 154/94 (114) 98 12/15/18 21:00 Room Air 12/15/18 20:00 98.7 75 16 139/88 (105) 97 12/15/18 20:00 85 Intake and Output 12/15/18 12/16/18 19:00 07:00 Intake Total 360 ml Output Total 600 ml Balance -240 ml Intake Oral 360 ml Output Urine Total 600 ml Post Void Residual 0 ml Bladder Scan Volume Amount <10 ml # Voids 3 Objective HEENT: No JVD LUNGS: Clear CVS: RRR no GRM ABDOMEN: Soft EXT 2 plus edema Isacc Sarah MD Dec 16, 2018 16:14
--- NOTE | 2018-12-16 19:42 | NUR ---
NURSE NOTES: Report given to ALEXANDRIA Sanchez. patient aox4 , up in chair and talking on phone.
[2018-12-16 20:00] VITALS: BP 100/81
--- NOTE | 2018-12-16 20:31 | NUR ---
NURSE NOTES: Received patient from ALEXANDRIA Jose, in stable condition, AOx4, up in chair, denies pain, talkative, in good mood, IV on left wrist g20, will continue to monitor and reassess
[2018-12-16] MEDS: Tamsulosin 0.4mg cap ORAL SCH (21:59)
--- NOTE | 2018-12-16 23:04 | General Progress Note ---
Assessment/Plan Assessment/Plan: cp dicomfort penis hematochezia cad awating stress test urology eval apprecaited will need colonspy when cardiac cleared dvt an dulcer rpohylaxis Subjective Allergies: Coded Allergies: No Known Allergies (Unverified , 12/13/18) Subjective co dicomfor penis wwhere his foresikin was removed no chest painor sob had some hematochezia before Objective Last 24 Hour Vital Signs Date Time Temp Pulse Resp B/P (MAP) Pulse Ox O2 Delivery O2 Flow Rate FiO2 12/16/18 16:00 77 12/16/18 15:50 97.7 81 20 105/73 (84) 97 12/16/18 13:32 98.4 12/16/18 12:00 98.4 75 20 139/86 (103) 97 12/16/18 12:00 84 12/16/18 10:09 98.0 12/16/18 09:00 Room Air 12/16/18 08:30 69 165/106 12/16/18 08:29 165/106 12/16/18 08:05 98.0 69 20 165/106 (125) 98 12/16/18 08:00 70 12/16/18 04:00 86 12/16/18 04:00 98.0 74 16 150/98 (115) 99 12/16/18 00:00 77 12/16/18 00:00 98.4 68 16 154/94 (114) 98 Intake and Output 12/15/18 12/16/18 18:59 06:59 Intake Total 360 ml Output Total 600 ml Balance -240 ml Intake Oral 360 ml Output Urine Total 600 ml Post Void Residual 0 ml Bladder Scan Volume Amount <10 ml # Voids 3 Height (Feet): 5 Height (Inches): 7.00 Weight (Pounds): 250 General Appearance: WD/WN, no apparent distress Neck: supple Cardiovascular: normal rate Respiratory/Chest: lungs clear Abdomen: soft Delfino Diggs MD Dec 16, 2018 23:04
[2018-12-17] VITALS: BP 124/94
[2018-12-17 04:00] VITALS: BP 130/79
--- NOTE | 2018-12-17 06:58 | NUR ---
NURSE NOTES: Received report from ALEXANDRIA Sanchez . Patient asleep.Bed low, locked postion with call vincent and urinal in reach. NSR 72bpm on tele.
--- NOTE | 2018-12-17 07:12 | NUR ---
HAND-OFF: Report given to ALEXANDRIA Jose, patient in stable condition, plan of care endorsed.
--- NOTE | 2018-12-17 07:39 | Cardiac Electrophysiology PN ---
Assessment/Plan Assessment/Plan 1. CP, troponins are all negative, stress test Tuesday 2. Bilateral LE edema On Lasix. Echo Nl EF 3. HTN, on Norvasc, Avapro and Lasix 4. Noncompliant DW RN Subjective Subjective No CP in SR.Awaiting Stress test Tuesday Objective Last 24 Hour Vital Signs Date Time Temp Pulse Resp B/P (MAP) Pulse Ox O2 Delivery O2 Flow Rate FiO2 12/17/18 04:00 96.8 76 18 130/79 (96) 96 12/17/18 04:00 80 12/17/18 00:00 76 12/17/18 00:00 97.0 72 18 124/94 (104) 95 12/16/18 21:00 Room Air 12/16/18 20:00 97.7 82 19 100/81 (87) 95 12/16/18 20:00 74 12/16/18 16:00 77 12/16/18 15:50 97.7 81 20 105/73 (84) 97 12/16/18 13:32 98.4 12/16/18 12:00 98.4 75 20 139/86 (103) 97 12/16/18 12:00 84 12/16/18 10:09 98.0 12/16/18 09:00 Room Air 12/16/18 08:30 69 165/106 12/16/18 08:29 165/106 12/16/18 08:05 98.0 69 20 165/106 (125) 98 12/16/18 08:00 70 Intake and Output 12/16/18 12/17/18 19:00 07:00 Intake Total 1480 ml Output Total 750 ml Balance 730 ml Intake Oral 1480 ml Output Urine Total 750 ml # Voids 6 3 Objective HEENT: No JVD LUNGS: Clear CVS: RRR no GRM ABDOMEN: Soft EXT 2 plus edema Isacc Sarah MD Dec 17, 2018 07:39
[2018-12-17 08:00] VITALS: BP 151/82
[2018-12-17] MEDS: Irbesartan 150mg tablet ORAL SCH (09:00)
[2018-12-17] MEDS: Heparin 5000 units/ml inj SUBQ SCH ×2 (09:00→21:05)
[2018-12-17] MEDS: Docusate 100mg cap ORAL SCH ×2 (09:53→17:17)
[2018-12-17] MEDS: Lyrica 25mg cap ORAL SCH (09:53)
[2018-12-17] MEDS: Aspirin Baby 81mg ORAL SCH (09:54)
--- NOTE | 2018-12-17 10:35 | Urology Progress Note ---
Assessment/Plan Assessment/Plan: 1. Penile skin adhesions and mild balanitis. 2. Lower urinary tract symptoms. 3. Benign prostatic hypertrophy. 4. Rule out neurogenic bladder. 5. Microhematuria. monitor clinically flomax added consider release of penile adhesions at some point cysto later renal fxn stable check renal u/s Subjective Allergies: Coded Allergies: No Known Allergies (Unverified , 12/13/18) Subjective all noted, feels fair, no new changes Objective Last 24 Hour Vital Signs Date Time Temp Pulse Resp B/P (MAP) Pulse Ox O2 Delivery O2 Flow Rate FiO2 12/17/18 09:54 76 151/82 12/17/18 09:00 151/82 12/17/18 08:00 97.7 73 18 151/82 (105) 93 12/17/18 08:00 76 12/17/18 04:00 96.8 76 18 130/79 (96) 96 12/17/18 04:00 80 12/17/18 00:00 76 12/17/18 00:00 97.0 72 18 124/94 (104) 95 12/16/18 21:00 Room Air 12/16/18 20:00 97.7 82 19 100/81 (87) 95 12/16/18 20:00 74 12/16/18 16:00 77 12/16/18 15:50 97.7 81 20 105/73 (84) 97 12/16/18 13:32 98.4 12/16/18 12:00 98.4 75 20 139/86 (103) 97 12/16/18 12:00 84 Intake and Output 12/16/18 12/17/18 19:00 07:00 Intake Total 1480 ml Output Total 750 ml Balance 730 ml Intake Oral 1480 ml Output Urine Total 750 ml # Voids 6 3 Microbiology Date/Time Source Procedure Growth Status 12/13/18 14:50 Nasal Nares MRSA Culture - Final NO METHICILLIN RESISTANT STAPH AUREUS... Complete 12/13/18 14:50 Rectum - Final NO CARBAPENEM-RESISTANT ENTEROBACTERI... Complete Current Medications Medications (Trade) Dose Ordered Sig/Alise Route PRN Reason Start Time Stop Time Status Last Admin Dose Admin Acetaminophen (Tylenol) 650 mg Q6H PRN ORAL Mild Pain/Temp > 100.5 12/13/18 18:30 01/12/19 18:29 Acetaminophen/ Hydrocodone Bitart ([place] 5/325) 1 tab Q6H PRN ORAL Severe Pain (Pain Scale 7-10) 12/13/18 18:30 12/20/18 18:29 12/16/18 13:01 Amlodipine Besylate (Norvasc) 5 mg DAILY ORAL 12/14/18 09:00 01/13/19 08:59 12/17/18 09:54 Aspirin (ASA) 81 mg DAILY ORAL 12/14/18 09:00 01/13/19 08:59 12/17/18 09:54 Clonidine HCl (Catapres Tab) 0.1 mg Q8H PRN ORAL for sbp >160 12/14/18 05:15 01/13/19 05:14 Docusate Sodium (Colace) 100 mg TWICE A DAY ORAL 12/14/18 09:00 01/13/19 08:59 12/17/18 09:53 Furosemide (Lasix) 40 mg EVERY 12 HOURS IV 12/14/18 21:00 01/13/19 20:59 12/17/18 10:03 Gabapentin (Neurontin) 300 mg Q8HR ORAL 12/13/18 22:00 01/12/19 21:59 12/17/18 06:22 Heparin Sodium (Porcine) (Heparin 5000 units/ml) 5,000 units EVERY 12 HOURS SUBQ 12/13/18 21:00 01/12/19 20:59 12/17/18 09:00 Irbesartan (Avapro) 300 mg DAILY ORAL 12/14/18 09:00 01/13/19 08:59 12/17/18 09:00 Lidocaine (Xylocaine 5% cream) 1 applic NEEDED PRN TOPIC For Pain 12/15/18 06:15 01/14/19 06:14 12/17/18 10:00 Magnesium Hydroxide (Mom) 30 ml BIDPRN PRN ORAL Constipation 12/13/18 18:30 01/12/19 18:29 Pantoprazole (Protonix) 40 mg DAILY ORAL 12/14/18 09:00 01/13/19 08:59 12/17/18 09:54 Pregabalin (Lyrica) 25 mg DAILY ORAL 12/14/18 09:00 01/13/19 08:59 12/17/18 09:53 Tamsulosin HCl (Flomax) 0.4 mg BEDTIME ORAL 12/14/18 21:00 01/13/19 20:59 12/16/18 21:59 Tramadol HCl (Ultram) 50 mg Q8H PRN ORAL Moderate Pain (Pain Scale 4-6) 12/13/18 18:30 12/20/18 18:29 12/14/18 01:15 Height (Feet): 5 Height (Inches): 7.00 Weight (Pounds): 250 Objective exam stable Ryan Beatty MD Dec 17, 2018 10:35
[2018-12-17] MEDS: HYDROcodone/Acetamin 5/325 tab ORAL PRN (10:47)
[2018-12-17] MEDS: Milk of Magnesia 30ml Ud ORAL PRN (10:48)
--- NOTE | 2018-12-17 11:01 | General Progress Note ---
Assessment/Plan Assessment/Plan: Assessment - chest pain - CAD/VT - Hematochezia - HTN - DM Recommendations - po as tolerated - await completion of cardiac w/u pending stress test on Tuesday - colonoscopy once above all completed Subjective ROS Limited/Unobtainable: Yes Allergies: Coded Allergies: No Known Allergies (Unverified , 12/13/18) Objective Last 24 Hour Vital Signs Date Time Temp Pulse Resp B/P (MAP) Pulse Ox O2 Delivery O2 Flow Rate FiO2 12/17/18 10:42 97.7 12/17/18 09:54 76 151/82 12/17/18 09:00 151/82 12/17/18 09:00 Room Air 12/17/18 08:00 97.7 73 18 151/82 (105) 93 12/17/18 08:00 76 12/17/18 04:00 96.8 76 18 130/79 (96) 96 12/17/18 04:00 80 12/17/18 00:00 76 12/17/18 00:00 97.0 72 18 124/94 (104) 95 12/16/18 21:00 Room Air 12/16/18 20:00 97.7 82 19 100/81 (87) 95 12/16/18 20:00 74 12/16/18 16:00 77 12/16/18 15:50 97.7 81 20 105/73 (84) 97 12/16/18 13:32 98.4 12/16/18 12:00 98.4 75 20 139/86 (103) 97 12/16/18 12:00 84 Intake and Output 12/16/18 12/17/18 19:00 07:00 Intake Total 1480 ml Output Total 750 ml Balance 730 ml Intake Oral 1480 ml Output Urine Total 750 ml # Voids 6 3 Height (Feet): 5 Height (Inches): 7.00 Weight (Pounds): 250 General Appearance: alert EENT: normal ENT inspection Neck: normal alignment Cardiovascular: normal rate Respiratory/Chest: lungs clear Abdomen: normal bowel sounds, non tender, soft Extremities: non-tender Brian Currie MD Dec 17, 2018 11:01
[2018-12-17 12:00] VITALS: BP 112/78
--- NOTE | 2018-12-17 14:10 | General Progress Note ---
Assessment/Plan Assessment/Plan: cp dicomfort penis hematochezia cad awating stress test urology eval apprecaited will need colonspy when cardiac cleared dvt and ulcer prophylaxis Subjective Allergies: Coded Allergies: No Known Allergies (Unverified , 12/13/18) Subjective no chest painor sob no hematochezia Objective Last 24 Hour Vital Signs Date Time Temp Pulse Resp B/P (MAP) Pulse Ox O2 Delivery O2 Flow Rate FiO2 12/17/18 12:24 97.7 12/17/18 12:00 79 12/17/18 12:00 97.0 78 21 112/78 (89) 98 12/17/18 10:42 97.7 12/17/18 09:54 76 151/82 12/17/18 09:00 151/82 12/17/18 09:00 Room Air 12/17/18 08:00 97.7 73 18 151/82 (105) 93 12/17/18 08:00 76 12/17/18 04:00 96.8 76 18 130/79 (96) 96 12/17/18 04:00 80 12/17/18 00:00 76 12/17/18 00:00 97.0 72 18 124/94 (104) 95 12/16/18 21:00 Room Air 12/16/18 20:00 97.7 82 19 100/81 (87) 95 12/16/18 20:00 74 12/16/18 16:00 77 12/16/18 15:50 97.7 81 20 105/73 (84) 97 Intake and Output 12/16/18 12/17/18 19:00 07:00 Intake Total 1480 ml Output Total 750 ml Balance 730 ml Intake Oral 1480 ml Output Urine Total 750 ml # Voids 6 3 Height (Feet): 5 Height (Inches): 7.00 Weight (Pounds): 250 General Appearance: WD/WN, no apparent distress Neck: supple Cardiovascular: normal rate Respiratory/Chest: lungs clear Abdomen: soft Delfino Diggs MD Dec 17, 2018 14:10
[2018-12-17 16:00] VITALS: BP 107/63
--- NOTE | 2018-12-17 17:35 | NUR ---
NURSE NOTES: Sunny scheduled for tomorrow per Dr Sarah. NPO at [facility]. Patient remained aox4 with calm cooperative affect. Left hand IV flushing well and is asymptomatic. No sign of respiratory or cardiac distress. Patient up in chair and using urinal. Call vincent in reach.
--- NOTE | 2018-12-17 19:32 | NUR ---
NURSE NOTES: Report given to ALEXANDRIA Sanchez.
--- NOTE | 2018-12-17 19:36 | NUR ---
Received patient from ALEXANDRIA Jose, in stable condition, AOx4, resting in bed, denies pain, talkative, in good mood, IV on left wrist g20, will continue to monitor and reassess
[2018-12-17 20:57] VITALS: BP 126/86
[2018-12-17] MEDS: Tamsulosin 0.4mg cap ORAL SCH (21:01)
[2018-12-18 00:26] VITALS: BP 123/88
[2018-12-18 04:00] VITALS: BP 133/85
[2018-12-18] MEDS ORDERED: Lexiscan 0.4mg/5ml syringe IV PRN (04:00)
--- NOTE | 2018-12-18 07:14 | NUR ---
HAND-OFF: Report given to ALEXANDRIA Jose, patient in stable condition, plan of care endorsed.
--- NOTE | 2018-12-18 07:36 | NUR ---
NURSE NOTES: Received report from ALEXANDRIA Sanchez. Patient up in chair , dozing but awoke when entered room. Breathing easily on RA with no sign of cardiac distress. AOX4 with calm affect--patient co constipation. Stress test planned today. Currently patient NPO. Call vincent and urinal in reach.
[2018-12-18 08:00] VITALS: BP 138/83
[2018-12-18] MEDS: Docusate 100mg cap ORAL SCH ×2 (09:12→18:11)
[2018-12-18] MEDS: Lyrica 25mg cap ORAL SCH (09:13)
[2018-12-18] MEDS: Aspirin Baby 81mg ORAL SCH (09:14)
[2018-12-18] MEDS: Heparin 5000 units/ml inj SUBQ SCH ×2 (09:14→21:00)
[2018-12-18] MEDS: Irbesartan 150mg tablet ORAL SCH (09:14)
[2018-12-18] MEDS: HYDROcodone/Acetamin 5/325 tab ORAL PRN (09:25)
[2018-12-18] MEDS: Milk of Magnesia 30ml Ud ORAL PRN (09:25)
--- NOTE | 2018-12-18 09:32 | Urology Progress Note ---
Assessment/Plan Assessment/Plan: 1. Penile skin adhesions and mild balanitis. 2. Lower urinary tract symptoms. 3. Benign prostatic hypertrophy. 4. Rule out neurogenic bladder. 5. Microhematuria. monitor clinically flomax added consider release of penile adhesions at some point cysto later renal fxn stable f/u on renal u/s Subjective Allergies: Coded Allergies: No Known Allergies (Unverified , 12/13/18) Subjective all noted, feels fair, no new changes Objective Last 24 Hour Vital Signs Date Time Temp Pulse Resp B/P (MAP) Pulse Ox O2 Delivery O2 Flow Rate FiO2 12/18/18 09:14 138/83 12/18/18 09:12 75 138/83 12/18/18 08:00 98.0 75 18 138/83 (101) 96 12/18/18 04:00 98.8 75 16 133/85 (101) 94 12/18/18 04:00 72 12/18/18 00:26 97.9 74 12 123/88 (100) 97 12/18/18 00:00 73 12/17/18 21:00 Room Air 12/17/18 21:00 Room Air 12/17/18 20:57 97.5 77 16 126/86 (99) 97 12/17/18 20:00 73 12/17/18 16:00 81 12/17/18 16:00 97.7 78 20 107/63 (78) 97 12/17/18 12:24 97.7 12/17/18 12:00 79 12/17/18 12:00 97.0 78 21 112/78 (89) 98 12/17/18 10:42 97.7 12/17/18 09:54 76 151/82 Intake and Output 12/17/18 12/18/18 19:00 07:00 Intake Total 480 ml 300 ml Output Total 775 ml 1500 ml Balance -295 ml -1200 ml Intake Oral 480 ml 300 ml Output Urine Total 775 ml 1500 ml # Voids 6 Microbiology Date/Time Source Procedure Growth Status 12/13/18 14:50 Nasal Nares MRSA Culture - Final NO METHICILLIN RESISTANT STAPH AUREUS... Complete 12/13/18 14:50 Rectum - Final NO CARBAPENEM-RESISTANT ENTEROBACTERI... Complete Current Medications Medications (Trade) Dose Ordered Sig/Alise Route PRN Reason Start Time Stop Time Status Last Admin Dose Admin Acetaminophen (Tylenol) 650 mg Q6H PRN ORAL Mild Pain/Temp > 100.5 12/13/18 18:30 01/12/19 18:29 Acetaminophen/ Hydrocodone Bitart ([place] 5/325) 1 tab Q6H PRN ORAL Severe Pain (Pain Scale 7-10) 12/13/18 18:30 12/20/18 18:29 12/18/18 09:25 Amlodipine Besylate (Norvasc) 5 mg DAILY ORAL 12/14/18 09:00 01/13/19 08:59 12/18/18 09:12 Aspirin (ASA) 81 mg DAILY ORAL 12/14/18 09:00 01/13/19 08:59 12/18/18 09:14 Clonidine HCl (Catapres Tab) 0.1 mg Q8H PRN ORAL for sbp >160 12/14/18 05:15 01/13/19 05:14 Docusate Sodium (Colace) 100 mg TWICE A DAY ORAL 12/14/18 09:00 01/13/19 08:59 12/18/18 09:12 Furosemide (Lasix) 40 mg EVERY 12 HOURS IV 12/14/18 21:00 01/13/19 20:59 12/17/18 21:02 Gabapentin (Neurontin) 300 mg Q8HR ORAL 12/13/18 22:00 01/12/19 21:59 12/18/18 05:18 Heparin Sodium (Porcine) (Heparin 5000 units/ml) 5,000 units EVERY 12 HOURS SUBQ 12/13/18 21:00 01/12/19 20:59 12/18/18 09:14 Irbesartan (Avapro) 300 mg DAILY ORAL 12/14/18 09:00 01/13/19 08:59 12/18/18 09:14 Lidocaine (Xylocaine 5% cream) 1 applic NEEDED PRN TOPIC For Pain 12/15/18 06:15 01/14/19 06:14 12/18/18 09:17 Magnesium Hydroxide (Mom) 30 ml BIDPRN PRN ORAL Constipation 12/13/18 18:30 01/12/19 18:29 12/18/18 09:25 Pantoprazole (Protonix) 40 mg DAILY ORAL 12/14/18 09:00 01/13/19 08:59 12/18/18 09:12 Pregabalin (Lyrica) 25 mg DAILY ORAL 12/14/18 09:00 01/13/19 08:59 12/18/18 09:13 Regadenoson (Lexiscan) 0.4 mg ONCE PRN IV STRESS TEST 12/18/18 04:00 12/19/18 03:59 Tamsulosin HCl (Flomax) 0.4 mg BEDTIME ORAL 12/14/18 21:00 01/13/19 20:59 12/17/18 21:01 Tramadol HCl (Ultram) 50 mg Q8H PRN ORAL Moderate Pain (Pain Scale 4-6) 12/13/18 18:30 12/20/18 18:29 12/14/18 01:15 Height (Feet): 5 Height (Inches): 7.00 Weight (Pounds): 250 Objective exam stable renal ultrasound (12/17) result pending Ryan Beatty MD Dec 18, 2018 09:32
--- NOTE | 2018-12-18 10:22 | NUR ---
NURSE NOTES: Patient IV flushed this morning saline prior to leaving for 1st step of pictures with Robin (cards stress test team). However , patient returned with Robin without test pictures done due to IV accesss loss. patient refusing IV insertion without lidocaine injection. This RN following up. Addendum: 12/18/18 at 1029 by Ricky Aponte RN Attempting IV now with RN who got previous access for this patient.
[2018-12-18 12:00] VITALS: BP 148/81
--- NOTE | 2018-12-18 12:41 | NUR ---
CASE MANAGEMENT:REVIEW 12/18/18 SI: ACS. BLE EDEMA. HEMATOCHEZIA 98.0 75 18 138/83 96% ON RA TROPONIN(-) X2 IS: IV LEXISCAN X1 IV LASIX Q12 FLOMAX PO QHS NORVASC PO QD AVAPRO PO QD LYRICA PO QD ASA PO QD : TELEMETRY STATUS DCP: FROM CHRISTEL SHOOK
--- NOTE | 2018-12-18 13:21 | NUR ---
NURSE NOTES: Received rport from [facility] patient from [facility] at 105pm with planned transport to SNF at 2pm. Ptient aox4 , fam at bedside and patient stated she already ate. Received report to leave wiggins in place at time of dc. Bed in lowest , locked position and call vincent at hand. Cont'd plan of care. Addendum: 12/18/18 at 1329 by Ricky Aponte RN above report entered on wrong patient. entered in error. disregard above.
--- NOTE | 2018-12-18 13:43 | Cardiology Report ---
APPROVED REPORT EKG Measurement Heart [id number] Normal sinus rhythm Left anterior fascicular block Possible Lateral infarct, age undetermined Abnormal ECG
--- NOTE | 2018-12-18 15:12 | NUR ---
NURSE NOTES:Dr Jeffers ordered fleets enema and then called to order mag citrate 1 bottle. enema given 3pm.
--- NOTE | 2018-12-18 15:58 | Diagnostic Imaging Report ---
Indication: chest pain Technique: The study was conducted under the supervision of a advanced manager. lexiscan (regadenoson) infusion over 10 seconds followed by intravenous administration of 30.8 mCi of technetium 99m Myoview was performed. Three plane SPECT imaging of the heart was then performed. A resting study was performed as part of the one-day protocol with 10 mCi of technetium 99m myoview injected intravenously at that time. Three plane SPECT imaging of the heart was obtained. Comparison: None Clinical data: 1. Clinical response: Non ischemic 2. Electrocardiographic response: Non ischemic Findings: The myocardial perfusion scan demonstrates no fixed or reversible perfusion defects. LVEF estimated at 70%. IMPRESSION: Negative myocardial perfusion scan
[2018-12-18 16:00] VITALS: BP 117/66
--- NOTE | 2018-12-18 16:01 | Cardiac Electrophysiology PN ---
Assessment/Plan Assessment/Plan 1. CP, troponins are all negative, stress test today was nonischemic 2. Bilateral LE edema On Lasix. Echo Nl EF 3. HTN, on Norvasc, Avapro and Lasix 4. Noncompliant DW RN Subjective Subjective No CP in SR. Stress test done today that showed no ischemia. Objective Last 24 Hour Vital Signs Date Time Temp Pulse Resp B/P (MAP) Pulse Ox O2 Delivery O2 Flow Rate FiO2 12/18/18 12:00 97.6 75 18 148/81 (103) 96 12/18/18 12:00 75 12/18/18 10:24 98.0 12/18/18 10:24 98.0 12/18/18 09:14 138/83 12/18/18 09:12 75 138/83 12/18/18 09:00 Room Air 12/18/18 08:00 98.0 75 18 138/83 (101) 96 12/18/18 08:00 75 12/18/18 04:00 98.8 75 16 133/85 (101) 94 12/18/18 04:00 72 12/18/18 00:26 97.9 74 12 123/88 (100) 97 12/18/18 00:00 73 12/17/18 21:00 Room Air 12/17/18 21:00 Room Air 12/17/18 20:57 97.5 77 16 126/86 (99) 97 12/17/18 20:00 73 Intake and Output 12/17/18 12/18/18 19:00 07:00 Intake Total 480 ml 300 ml Output Total 775 ml 1500 ml Balance -295 ml -1200 ml Intake Oral 480 ml 300 ml Output Urine Total 775 ml 1500 ml # Voids 6 Objective HEENT: No JVD LUNGS: Clear CVS: RRR no GRM ABDOMEN: Soft EXT 2 plus edema Isacc Sarah MD Dec 18, 2018 16:01
--- NOTE | 2018-12-18 16:31 | Diagnostic Imaging Report ---
Indication:Elevated Bun and Creatinine. Technique: Grayscale and duplex Doppler imaging of the kidneys performed. Comparison: None Findings: The size, contour, and echogenicity of both kidneys are within normal limits. There is no hydronephrosis.. The right kidney measures 10.3 cm. in length. The left kidney measures 0.1 cm. in length. The IVC is patent. Urinary bladder is unremarkable. IMPRESSION: Negative ultrasound the kidneys.
[2018-12-18] MEDS ORDERED: Magnesium Citrate Liq Btl ORAL SCH (17:00)
--- NOTE | 2018-12-18 17:55 | General Progress Note ---
Assessment/Plan Assessment/Plan: Assessment - chest pain - negative stress test - h/o CAD/PA - Hematochezia - needs colonoscopy - HTN - DM Recommendations - po as tolerated - Fleets enema x 1 --> given without effect - Will Rx Mag citrate - Colonoscopy Wed or Th depending on prep response - Subjective Allergies: Coded Allergies: No Known Allergies (Unverified , 12/13/18) Subjective feel constipated no BM x several days passed stress test Objective Last 24 Hour Vital Signs Date Time Temp Pulse Resp B/P (MAP) Pulse Ox O2 Delivery O2 Flow Rate FiO2 12/18/18 16:00 98.0 87 20 117/66 (83) 97 12/18/18 12:00 97.6 75 18 148/81 (103) 96 12/18/18 12:00 75 12/18/18 10:24 98.0 12/18/18 10:24 98.0 12/18/18 09:14 138/83 12/18/18 09:12 75 138/83 12/18/18 09:00 Room Air 12/18/18 08:00 98.0 75 18 138/83 (101) 96 12/18/18 08:00 75 12/18/18 04:00 98.8 75 16 133/85 (101) 94 12/18/18 04:00 72 12/18/18 00:26 97.9 74 12 123/88 (100) 97 12/18/18 00:00 73 12/17/18 21:00 Room Air 12/17/18 21:00 Room Air 12/17/18 20:57 97.5 77 16 126/86 (99) 97 12/17/18 20:00 73 Intake and Output 12/17/18 12/18/18 19:00 07:00 Intake Total 480 ml 300 ml Output Total 775 ml 1500 ml Balance -295 ml -1200 ml Intake Oral 480 ml 300 ml Output Urine Total 775 ml 1500 ml # Voids 6 Height (Feet): 5 Height (Inches): 7.00 Weight (Pounds): 250 Objective Obese AA man NCAT supple CTA RR abd soft NT ND no edema Evelina Jeffers MD Dec 18, 2018 17:55
--- NOTE | 2018-12-18 18:36 | NUR ---
NURSE NOTES: patient stated he did want colonoscopy. THis RN spoke with Dr Jeffers, relayed same message. After discussing with patient further, patient stated "I decided I might need this later, because [facility]. You only have 7 days." This RN called back to Dr Cabello, and got rn practitioner with Dr Currie. Informed Dr Currie of patient's concern adn Dr Currie stated he would speak with patient tomorrow to finalize plans. Dr Beatty called asking for plan with patient--relayed same message about GI plans for bowel prep tomorrow for planned colonoscopy on Tuesday--with the caveat that patient needs to make sure that he won't lose his bed at [facility].
--- NOTE | 2018-12-18 18:43 | NUR ---
NURSE NOTES: Patient had one large BM just before drinking mag citrate, but stated "That ain't all. there's a lot more, I better drink that stuff that will make me go to the bathroom." Currently sipping mag citrate.
--- NOTE | 2018-12-18 19:20 | General Progress Note ---
Assessment/Plan Assessment/Plan: cp dicomfort penis hematochezia cad stress test is negative urology eval apprecaited dw Dr Finch, planning on doing colonpsy inhouse he states dw CM dvt and ulcer prophylaxis Subjective Allergies: Coded Allergies: No Known Allergies (Unverified , 12/13/18) Subjective no chest painor sob no hematochezia, stress test is negative Objective Last 24 Hour Vital Signs Date Time Temp Pulse Resp B/P (MAP) Pulse Ox O2 Delivery O2 Flow Rate FiO2 12/18/18 16:00 90 12/18/18 16:00 98.0 87 20 117/66 (83) 97 12/18/18 12:00 97.6 75 18 148/81 (103) 96 12/18/18 12:00 75 12/18/18 10:24 98.0 12/18/18 10:24 98.0 12/18/18 09:14 138/83 12/18/18 09:12 75 138/83 12/18/18 09:00 Room Air 12/18/18 08:00 98.0 75 18 138/83 (101) 96 12/18/18 08:00 75 12/18/18 04:00 98.8 75 16 133/85 (101) 94 12/18/18 04:00 72 12/18/18 00:26 97.9 74 12 123/88 (100) 97 12/18/18 00:00 73 12/17/18 21:00 Room Air 12/17/18 21:00 Room Air 12/17/18 20:57 97.5 77 16 126/86 (99) 97 12/17/18 20:00 73 Intake and Output 12/17/18 12/18/18 19:00 07:00 Intake Total 480 ml 300 ml Output Total 775 ml 1500 ml Balance -295 ml -1200 ml Intake Oral 480 ml 300 ml Output Urine Total 775 ml 1500 ml # Voids 6 Height (Feet): 5 Height (Inches): 7.00 Weight (Pounds): 250 General Appearance: WD/WN, no apparent distress Neck: supple Cardiovascular: normal rate Respiratory/Chest: lungs clear Abdomen: soft Delfino Diggs MD Dec 18, 2018 19:20
--- NOTE | 2018-12-18 19:23 | Consultation ---
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 He was hospitalized a few days ago for chest pain and has been told that he has had a small heart attack. For the last 5 years he has had pain in his entire right lower extremity in the form of a 1 inch line that starts at the level of the hip and goes all the way down to his ankle in the form of a tuxedo pant stripe. He denies any associated altered sensation in the lower extremity, weakness, numbness, or other neurological symptoms. He also denies any problems with his memory or vision. ON EXAM: Fully oriented except for the exact date Memory: /3-0, 2/3-1 and 3 even on the second trial Trump and Obama only Mathematical skills preserved Visual-spatial function preserved Speech normal Language normal Cranial nerves II through XII intact Motor: G 5/5 Sensory intact to pinprick light touch Coordination normal [id number] on left side unable to perform on right Reflexes: 0 at the biceps triceps brachioradialis knees and ankles. Plantar responses flexor. Stance: Stood up independently. Gait: Wide-based but independent IMPRESSION: 1. Pain in his entire right lower extremity in the form of a 1 inch line that starts at the level of the hip and goes all the way down to his ankle in the form of a tuxedo pant stripe. 2. Neurological examination with problems with recent and remote memory, globally absent deep tendon reflexes, and right sided phocomelia. 3. Unable to explain the patient's pain on a neuro-anatomical basis. RECOMMENDATIONS: The patient is very uncomfortable from the pain and would like to try something. We will try amitriptyline 25 mg to be taken at bedtime to help with the pain and discomfort If discharged follow-up in office in approximately 2 months Zoran Vences M.D., M.S.P.H. Zoran Vences MD Dec 18, 2018 19:23
--- NOTE | 2018-12-18 19:38 | NUR ---
NURSE NOTES: Report given to ALEXANDRIA zepeda. Endorsed that patient needs to speak with Dr and VERONICA or RAYSA tomorrow to ensure he doesn't lose his bed at [facility] if he stays for colonoscopy. SW consult was placed for same reason over the weekend by this RN.
[2018-12-18 20:00] VITALS: BP 154/79
[2018-12-18] MEDS: Tamsulosin 0.4mg cap ORAL SCH (21:40)
--- NOTE | 2018-12-18 22:23 | NUR ---
NURSE NOTES: IV infiltrated,took it out. Patient refused insertion of new IV
--- NOTE | 2018-12-18 23:15 | Consultation ---
DATE OF CONSULTATION: 12/18/2018 NEUROLOGY CONSULTATION CONSULTING PHYSICIAN: Zoran Vences M.D. REQUESTING PHYSICIAN: Delfino Diggs M.D. HISTORY: Mr. 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 He was hospitalized a few days ago for chest pain and has been told that he has had a small heart attack. For the last 5 years, he has had pain in his entire right lower extremity in the form of an 1 inch line that starts at the level of his hip and goes all the way down to his ankle in the form of a tuxedo pant stripe. He denies any associated altered sensations in the lower extremity, weakness, numbness or other neurological symptoms. Since the problem started, it has remained with him and can vary in severity from time to time. He also denies any other neurological problems including problems with his memory, vision or other neurological function. 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 FAMILY HISTORY: Nothing significant as per the patient. PERSONAL HISTORY: Home: He lives in a senior citizen home. 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 Habits: He denies use of alcohol, tobacco, or illicit drugs. PRESENT MEDICATIONS: Lidocaine cream applied to itching areas, Lasix, Flomax, Norvasc, Colace, Avapro, Protonix, Lyrica 25 mg daily, aspirin 81 mg daily, clonidine, gabapentin 300 mg every 8 hours, heparin for DVT prophylaxis, tramadol, Tylenol, [place], milk of magnesia. PHYSICAL EXAMINATION: GENERAL: He is a well-developed, well-nourished, obese black gentleman, lying in bed, in no acute distress. VITAL SIGNS: Pulse 87/minute, blood pressure 117/66 mmHg, respirations 20/minute, and temperature 98 degrees Fahrenheit. HEAD: Normocephalic and atraumatic. EENT: Examination benign. NECK: No neck rigidity was observed. NEUROLOGICAL EXAMINATION: MENTAL STATUS EXAMINATION: He was awake and alert. He was oriented to person, place, and time except for the exact date. He was able to recall 3/3 words immediately, but could only remember 2/3 words in 1 minute and 3 minutes even on the second trial. He was able to remember presidents, Trump and Obama only. His mathematical skills were preserved. His visuospatial function was also preserved. SPEECH: He had no dysarthria. LANGUAGE: He had no aphasia. CRANIAL NERVE EXAMINATION: II: The visual [place] were intact on confrontation testing. III, IV, : External ocular movements were full and the pupils 3 mm in diameter, equal, round, regular, and reactive to light. V: He had normal facial sensations, and the temporales, masseters, and pterygoids functioned normally. VII: He had normal facial expressions and no facial asymmetry. VIII: He was able to hear well bilaterally and had no nystagmus. IX: The palate moved symmetrically on phonation. X: He had no hoarseness of voice. XI: The sternocleidomastoids and trapezii functioned normally. XII: The tongue was in the midline without any fasciculations or atrophy. MOTOR SYSTEM: The tone was normal in all four extremities. Examination of muscle mass revealed no focal wasting. Examination of power revealed G 5/5 power in all muscle groups tested. SENSORY EXAMINATION: He had intact sensations to pinprick, light touch, coordination. COORDINATION: He performed well on [id number] testing on the left side. He was unable to perform the right side. REFLEXES: 0 at the biceps, triceps, brachioradialis, knees, and ankles. The plantar responses were flexor bilaterally. STANCE: He stood up independently. GAIT: He walked independently with a wide-based gait. DIAGNOSTIC IMPRESSION: 1. Mr. 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 2. For the last 5 years, he has had pain in his entire right lower extremity in the form of an one inch stripe that starts at the level of the hip and goes all the way down to his ankle in the form of a tuxedo pant stripe. 3. On neurological examination at this time, he does have problems with recent and remote memory, and globally absent deep tendon reflexes. He also exhibits right-sided phocomelia. 4. It is difficult to explain the patient's pain syndrome on a neuroanatomical basis. It does not follow the course of a nerve root, peripheral nerve, or central nervous system lesion. RECOMMENDATIONS: 1. The patient was given an explanation of the above- mentioned findings. 2. As he is quite uncomfortable from the pain and would like to try something, it may be worth trying amitriptyline 25 mg to be taken at bedtime for his pain and discomfort. 3. If discharged, I would like to see the patient in followup in my office in approximately two months from now. Thank you for entrusting me with the care of Mr. Grant. I shall follow him with you. Zoran Vences M.D., M.S.P.H. DR: Roseann JOB#: [id number] NORMA
[2018-12-19] VITALS: BP 158/78
[2018-12-19 04:00] VITALS: BP 156/86
[2018-12-19] MEDS ORDERED: Nulytely 4L ORAL SCH ×2 (07:00→13:00)
--- NOTE | 2018-12-19 07:14 | General Progress Note ---
Assessment/Plan Assessment/Plan: Assessment - chest pain - negative stress test - h/o CAD/IN - Hematochezia - needs colonoscopy - constipation, severe - will need fci Rx - HTN - DM Recommendations - clear liquid - golytely - check labs - possible colonoscopy tomorrow, if not discharged Subjective Allergies: Coded Allergies: No Known Allergies (Unverified , 12/13/18) Subjective had one large BM but no diarrhea advised plans made to do colonoscopy tomorrow says he does not want to stay if B&C bed not guaranteed after 7 d, which is today Objective Last 24 Hour Vital Signs Date Time Temp Pulse Resp B/P (MAP) Pulse Ox O2 Delivery O2 Flow Rate FiO2 12/19/18 04:00 96.9 87 19 156/86 (109) 98 12/19/18 04:00 90 12/19/18 00:00 98.2 84 19 158/78 (104) 98 12/19/18 00:00 86 12/18/18 21:00 Room Air 12/18/18 20:00 98.4 88 18 154/79 (104) 97 12/18/18 20:00 85 12/18/18 16:00 90 12/18/18 16:00 98.0 87 20 117/66 (83) 97 12/18/18 12:00 97.6 75 18 148/81 (103) 96 12/18/18 12:00 75 12/18/18 10:24 98.0 12/18/18 10:24 98.0 12/18/18 09:14 138/83 12/18/18 09:12 75 138/83 12/18/18 09:00 Room Air 12/18/18 08:00 98.0 75 18 138/83 (101) 96 12/18/18 08:00 75 Intake and Output 12/18/18 12/19/18 18:59 06:59 Intake Total 530 ml 300 ml Output Total 550 ml 700 ml Balance -20 ml -400 ml Intake Oral 530 ml 300 ml Output Urine Total 550 ml 700 ml # Voids 4 1 # Bowel Movements 1 Height (Feet): 5 Height (Inches): 7.00 Weight (Pounds): 250 Objective Obese AA man NCAT supple CTA RR abd soft NT ND no edema Evelina Jeffers MD Dec 19, 2018 07:14
--- NOTE | 2018-12-19 07:30 | NUR ---
NURSE NOTES: Received report from ALEXANDRIA Sanchez. The patient is resting on the bed without acute distress or shortness of breath. The patient's bed in the lowest position, call light in reach, and fall and aspiration precaution reinforced. The patient does not have IV access per Laura since the patient does not needle poking. Will try to get IV access. Will clarify regarding possible colonoscopy today. Will continue plan of care.
--- NOTE | 2018-12-19 07:43 | NUR ---
HAND-OFF: Report given to ALEXANDRIA Hayden, patient in stable condition, plan of care endorsed.
[2018-12-19 08:00] VITALS: BP 129/66
[2018-12-19] MEDS: Heparin 5000 units/ml inj SUBQ SCH ×2 (09:00→21:00)
[2018-12-19] MEDS: Aspirin Baby 81mg ORAL SCH (09:00)
[2018-12-19] MEDS: Irbesartan 150mg tablet ORAL SCH ×2 (09:00→10:06)
[2018-12-19] MEDS: Docusate 100mg cap ORAL SCH ×3 (09:00→17:56)
--- NOTE | 2018-12-19 09:30 | NUR ---
NURSE NOTES: Communicated with Dr. Diggs regarding no IV access and refusal of blood test. Dr. Diggs ordered Lidocaine injection in addition to Lidocaine cream prior to IV access and blood draw. Clarification will be made with the pharmacist. Will continue plan of care.
[2018-12-19] MEDS: Lyrica 25mg cap ORAL SCH (10:00)
--- NOTE | 2018-12-19 10:00 | NUR ---
NURSE NOTES: Communicated with Dr. Larios regarding possible colonoscopy today. Per Dr. Jeffers, will do colonoscopy on 12/20 if the patient gets ready. Per Dr. Jeffers, start Nulytely early as 1300 as the patient is hard to be prepared. Will carry out the order as ordered. Will continue plan of care.
--- NOTE | 2018-12-19 11:11 | Cardiac Electrophysiology PN ---
Assessment/Plan Assessment/Plan 1. CP, troponins are all negative, stress test was nonischemic 2. Bilateral LE edema On Lasix. Echo Nl EF 3. HTN, on Norvasc, Avapro and change Lasix to 40 po daily 4. Noncompliant 5. Blood in stool. Scheduled for colonoscopy tomorrow by Dr Zeyad ROLDAN RN Subjective Subjective No CP in SR. Stress test done showed no ischemia.In SR Objective Last 24 Hour Vital Signs Date Time Temp Pulse Resp B/P (MAP) Pulse Ox O2 Delivery O2 Flow Rate FiO2 12/19/18 10:06 129/66 12/19/18 10:06 79 129/66 12/19/18 08:00 96.3 79 20 129/66 (87) 95 12/19/18 04:00 96.9 87 19 156/86 (109) 98 12/19/18 04:00 90 12/19/18 00:00 98.2 84 19 158/78 (104) 98 12/19/18 00:00 86 12/18/18 21:00 Room Air 12/18/18 20:00 98.4 88 18 154/79 (104) 97 12/18/18 20:00 85 12/18/18 16:00 90 12/18/18 16:00 98.0 87 20 117/66 (83) 97 12/18/18 12:00 97.6 75 18 148/81 (103) 96 12/18/18 12:00 75 Intake and Output 12/18/18 12/19/18 19:00 07:00 Intake Total 530 ml 300 ml Output Total 550 ml 700 ml Balance -20 ml -400 ml Intake Oral 530 ml 300 ml Output Urine Total 550 ml 700 ml # Voids 4 1 # Bowel Movements 1 Objective HEENT: No JVD LUNGS: Clear CVS: RRR no GRM ABDOMEN: Soft EXT 2 plus edema Isacc Sarah MD Dec 19, 2018 11:11
[2018-12-19 12:00] VITALS: BP 131/84
--- NOTE | 2018-12-19 12:00 | NUR ---
NURSE NOTES: Communicated with Dr. Sarah regarding no IV access. Notified Dr. Sarah that the primary nurse was not able to administer Lasix 40mg IV route due to unattainable IV access. Dr. Sarah ordered Lasix 40mg 1tab PO QD for no IV access. Will carry out the order. Will continue plan of care.
--- NOTE | 2018-12-19 12:24 | Urology Progress Note ---
Assessment/Plan Assessment/Plan: 1. Penile skin adhesions and mild balanitis. 2. Lower urinary tract symptoms. 3. Benign prostatic hypertrophy. 4. Rule out neurogenic bladder. 5. Microhematuria. monitor clinically flomax added consider release of penile adhesions at some point cysto later, can be done as outpt renal fxn stable Subjective Allergies: Coded Allergies: No Known Allergies (Unverified , 12/13/18) Subjective all noted, feels fair, no new changes Objective Last 24 Hour Vital Signs Date Time Temp Pulse Resp B/P (MAP) Pulse Ox O2 Delivery O2 Flow Rate FiO2 12/19/18 10:06 129/66 12/19/18 10:06 79 129/66 12/19/18 08:00 96.3 79 20 129/66 (87) 95 12/19/18 04:00 96.9 87 19 156/86 (109) 98 12/19/18 04:00 90 12/19/18 00:00 98.2 84 19 158/78 (104) 98 12/19/18 00:00 86 12/18/18 21:00 Room Air 12/18/18 20:00 98.4 88 18 154/79 (104) 97 12/18/18 20:00 85 12/18/18 16:00 90 12/18/18 16:00 98.0 87 20 117/66 (83) 97 Intake and Output 12/18/18 12/19/18 19:00 07:00 Intake Total 530 ml 300 ml Output Total 550 ml 700 ml Balance -20 ml -400 ml Intake Oral 530 ml 300 ml Output Urine Total 550 ml 700 ml # Voids 4 1 # Bowel Movements 1 Microbiology Date/Time Source Procedure Growth Status 12/13/18 14:50 Nasal Nares MRSA Culture - Final NO METHICILLIN RESISTANT STAPH AUREUS... Complete 12/13/18 14:50 Rectum - Final NO CARBAPENEM-RESISTANT ENTEROBACTERI... Complete Current Medications Medications (Trade) Dose Ordered Sig/Alise Route PRN Reason Start Time Stop Time Status Last Admin Dose Admin Acetaminophen (Tylenol) 650 mg Q6H PRN ORAL Mild Pain/Temp > 100.5 12/13/18 18:30 01/12/19 18:29 Acetaminophen/ Hydrocodone Bitart (Perry 5/325) 1 tab Q6H PRN ORAL Severe Pain (Pain Scale 7-10) 12/13/18 18:30 12/20/18 18:29 12/18/18 09:25 Amitriptyline HCl (Elavil) 25 mg BEDTIME ORAL 12/18/18 21:00 01/17/19 20:59 12/18/18 21:40 Amlodipine Besylate (Norvasc) 5 mg DAILY ORAL 12/14/18 09:00 01/13/19 08:59 12/19/18 10:06 Aspirin (ASA) 81 mg DAILY ORAL 12/14/18 09:00 01/13/19 08:59 12/18/18 09:14 Clonidine HCl (Catapres Tab) 0.1 mg Q8H PRN ORAL for sbp >160 12/14/18 05:15 01/13/19 05:14 Docusate Sodium (Colace) 100 mg TWICE A DAY ORAL 12/14/18 09:00 01/13/19 08:59 12/19/18 10:06 Furosemide (Lasix) 40 mg DAILY ORAL 12/19/18 12:00 01/18/19 11:59 UNV Furosemide (Lasix) 40 mg EVERY 12 HOURS IV 12/14/18 21:00 01/13/19 20:59 12/18/18 21:40 Gabapentin (Neurontin) 300 mg Q8HR ORAL 12/13/18 22:00 01/12/19 21:59 12/19/18 05:21 Heparin Sodium (Porcine) (Heparin 5000 units/ml) 5,000 units EVERY 12 HOURS SUBQ 12/13/18 21:00 01/12/19 20:59 12/18/18 09:14 Irbesartan (Avapro) 300 mg DAILY ORAL 12/14/18 09:00 01/13/19 08:59 12/19/18 10:06 Lidocaine (Xylocaine 5% cream) 1 applic NEEDED PRN TOPIC For Pain 12/15/18 06:15 01/14/19 06:14 12/18/18 09:17 Magnesium Hydroxide (Mom) 30 ml BIDPRN PRN ORAL Constipation 12/13/18 18:30 01/12/19 18:29 12/18/18 09:25 Pantoprazole (Protonix) 40 mg DAILY ORAL 12/14/18 09:00 01/13/19 08:59 12/19/18 10:00 Polyethylene Glycol/ Electrolytes (Nulytely) 4,000 ml ONCE ORAL 12/19/18 13:00 12/19/18 23:59 Pregabalin (Lyrica) 25 mg DAILY ORAL 12/14/18 09:00 01/13/19 08:59 12/19/18 10:00 Tamsulosin HCl (Flomax) 0.4 mg BEDTIME ORAL 12/14/18 21:00 01/13/19 20:59 12/18/18 21:40 Tramadol HCl (Ultram) 50 mg Q8H PRN ORAL Moderate Pain (Pain Scale 4-6) 12/13/18 18:30 12/20/18 18:29 12/14/18 01:15 Height (Feet): 5 Height (Inches): 7.00 Weight (Pounds): 250 Objective exam stable renal ultrasound (12/17) negative Ryan Beatty MD Dec 19, 2018 12:24
--- NOTE | 2018-12-19 12:30 | NUR ---
NURSE NOTES: Dr. Jeffers called to the primary nurse and informed regarding cancellation of colonoscopy that was scheduled for 12/20. Dr. Jeffers wants the primary nurse to change the diet into cardiac diet. Will carry out the order. The patient is stable without acute distress or shortness of breath. Will continue plan of care.
[2018-12-19] MEDS: Furosemide 40mg tab ORAL SCH (12:36)
--- NOTE | 2018-12-19 13:06 | NUR ---
DISCHARGE PLANNING PER CONVERSATION WITH 'S PROCEDURE PREP CANCELLED PROCEDURE CANCELLED DISCHARGE BACK TO [facility]...ACCEPTED TO ROOM 7C DR PARNELL IS AWARE THAT PATIENT REFUSED LAB DRAWS Addendum: 12/19/18 at 1641 by BOB HENRY LVN LVN ROOM NUMBER [id number] CONFIRMED BY GIORGIO AT [facility] AND DISCHARGE ORDER PENDING
--- NOTE | 2018-12-19 13:37 | Diagnostic Imaging Report ---
APPROVED REPORT CPT Code: 26608 Symptoms Comments: Pain VELOCITY MEASUREMENTS AND DOPPLER WAVEFORM ANALYSIS RIGHTcm/secWaveformSeverityLEFTcm/secWaveformSeverity Com Fem Art. TriphasicNormalCom Fem Art. Triphasic CONTACT PRINTER DRY FILM Dist. TriphasicNormalPTA Dist. TriphasicNormal SVETA Mid. TriphasicNormalATA Mid. TriphasicNormal KIMBERLY: Common femoral artery waveform analysis is within normal limits at rest bilaterally. Ankle brachial indices and Doppler tibial artery waveform analyses are within normal
--- NOTE | 2018-12-19 13:40 | Diagnostic Imaging Report ---
APPROVED REPORT CPT Code: 84495 Present Symptoms Comments: BILATERAL LEGS PAIN. BILATERAL: Imaging reveals a patent deep venous system bilaterally. There is no evidence of thrombus within the femoral, popliteal or tibial segments. The greater saphenous veins are also within normal limits. Doppler indicates normal spontaneous flow within these segments.
[2018-12-19] MEDS ORDERED: Lidocaine 1% MPF 10mg/ml 5ml INJ PRN (13:46)
[2018-12-19 16:00] VITALS: BP 104/44
--- NOTE | 2018-12-19 17:56 | Neurology Progress Note ---
Interim History Interim History Interim History Mr. Grant feels relatively well today. The discomfort along the lateral aspect of his right lower extremity may be a little better. He usually feels the discomfort when he walks and when he was made to walk he did not feel any increase in the discomfort. He denies any other new neurological symptoms. Plans to go home today. First dose of Elavil 25 mg at bedtime yesterday and has tolerated it well. Review of Systems Neuro Review of Systems Benign. Objective Physical Exam Last Vital Signs Date Time Temp Pulse Resp B/P (MAP) Pulse Ox O2 Delivery O2 Flow Rate FiO2 12/19/18 12:00 97.3 74 20 131/84 (100) 96 12/19/18 09:00 Room Air Neurologic Exam Objective PHYSICAL EXAMINATION: GENERAL: He is a well-developed, well-nourished, obese black gentleman, lying in bed, in no acute distress. HEAD: Normocephalic and atraumatic. EENT: Examination benign. NECK: No neck rigidity was observed. NEUROLOGICAL EXAMINATION: MENTAL STATUS EXAMINATION: He was awake and alert. He was oriented to person, place, and time except for the exact date. He was able to recall 3/3 words immediately, but could only remember 2/3 words in 1 minute and 3 minutes. He was able to remember presidents,Trump and Obama only. His mathematical skills were preserved. His visuospatial function was also preserved. SPEECH: He had no dysarthria. LANGUAGE: He had no aphasia. CRANIAL NERVE EXAMINATION: II THROUGH XII: Intact MOTOR SYSTEM: The tone was normal in all four extremities. Examination of muscle mass revealed no focal wasting. He had right-sided phocomelia Examination of power revealed G 5/5 power in all muscle groups tested. SENSORY EXAMINATION: He had intact sensations to pinprick and light touch. COORDINATION: He performed well on [id number] testing on the left side. He was unable to perform the right side. REFLEXES: 0 at the biceps, triceps, brachioradialis, knees, and ankles. The plantar responses were flexor bilaterally. STANCE: He stood up independently. GAIT: He walked independently with a wide-based gait. Impression/Recommendations Diagnostic Impression 1. 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 2. For the last 5 years, he has had pain in his entire right lower extremity in the form of an one inch line that starts in the level of the hip and goes all the way down to his ankle in the form of a tuxedo pant stripe. 3. He feels better today and has been more comfortable even when he walked a longer distance. 4. On neurological examination at this time, he does have problems with recent and remote memory, and globally absent deep tendon reflexes. He also exhibits right-sided phocomelia. 5. It is difficult to explain the patient's pain syndrome on neuroanatomical basis. It does not follow the course of a nerve root, peripheral nerve, or central nervous system lesion. 6. He is more comfortable today. Recommendations 1. The patient was given an explanation of the above-mentioned findings. 2. Continue Elavil 25 mg q HS. 3. Followup in my office in approximately two months from now. RONDA VENCES M.D., M.S.P.H. Ronda Vences MD Dec 19, 2018 17:56
--- NOTE | 2018-12-19 18:30 | NUR ---
NURSE NOTES: The primary was told from the charge nurse saying that the patient may possibly discharge after blood test since the patient has refused the blood test for past couple days. Clarification made with the pharmacist regarding injectable Lidocaine and carried out the order. Blood was able to be collected after using Lidocaine cream and Lidocaine shot. Will wait for the order to come out. Will continue plan of care.
[2018-12-19 18:49] LABS: BASOPHILS % (AUTO) 0.9 % (0.0-2.0); EOSINOPHILS % (AUTO) 1.6 % (0.0-3.0); HEMATOCRIT 37.9 % (42.0-52.0); HEMOGLOBIN 12.8 G/DL (14.2-18.0); MEAN CORPUSCULAR VOLUME 91 FL (80-99); MONOCYTES % (AUTO) 10.7 % (1.0-10.0); NEUTROPHILS % (AUTO) 58.9 % (45.0-75.0); PLATELET COUNT 266 K/UL (150-450); RED BLOOD COUNT 4.15 M/UL (4.70-6.10); RED CELL DISTRIBUTION WIDTH 12.9 % (11.6-14.8); WHITE BLOOD COUNT 7.6 K/UL (4.8-10.8)
[2018-12-19 19:06] LABS: ALANINE AMINOTRANSFERASE 21 U/L (12-78); ALBUMIN/GLOBULIN RATIO 0.8 (1.0-2.7); ALKALINE PHOSPHATASE 81 U/L (46-116); ANION GAP 9 mmol/L (5-15); ASPARTATE AMINO TRANSFERASE 14 U/L (15-37); BILIRUBIN,TOTAL 0.4 MG/DL (0.2-1.0); BLOOD UREA NITROGEN 30 mg/dL (7-18); CALCIUM 8.4 MG/DL (8.5-10.1); CARBON DIOXIDE 28 MMOL/L (21-32); CHLORIDE 104 MMOL/L (98-107); CREATININE 1.6 MG/DL (0.55-1.30); POTASSIUM 3.5 MMOL/L (3.5-5.1); SODIUM 141 MMOL/L (136-145)
--- NOTE | 2018-12-19 19:20 | NUR ---
HAND-OFF: Report given to ALEXANDRIA Ivan. The patient is resting on the bed without acute distress or shortness of breath. The patient's bed in the lowest position, call light in reach, and fall and aspiration precaution reinforced. Informed the patient that he needs IV access during hospital stay, but the patient refused even with Lidocaine cream and shot. Notified Dr. Diggs regarding unattainable IV access. Asked ALEXANDRIA Ivan to follow up the blood test result. Endorsed plan of care.
--- NOTE | 2018-12-19 19:55 | NUR ---
NURSE NOTES: Pt received from ALEXANDRIA Hayden alert and oriented x4 with no acute s/s of resp distress. Sitting down on chair, watching TV. No IV site, per AM nurse, aware. Bed in lowest position, bed alarm on. Call light and belongings within reach.
--- NOTE | 2018-12-19 21:14 | NUR ---
NURSE NOTES: Spoke with Dr. Diggs and communicated lab results including D-dimer of 0.76. Per Dr. Diggs, order VQ scan stat. If negative, pls d/c pt back to [facility] tonight. RN spoke with [facility], they are " available to receive patient at any time tonight."
[2018-12-19] MEDS: Tamsulosin 0.4mg cap ORAL SCH (22:30)
--- NOTE | 2018-12-19 23:22 | General Progress Note ---
Assessment/Plan Assessment/Plan: cp dicomfort penis hematochezia cad stress test is negative urology eval apprecaited awaiting todays labs joaquina Rodriguez patient want to go back to snf and get same room so Dr Rodriguez will arrange colonpsy as outpatient joaquina CM dvt and ulcer prophylaxis ok for dc after labs back Subjective Allergies: Coded Allergies: No Known Allergies (Unverified , 12/13/18) Subjective no chest painor sob no hematochezia, stress test is negative. patient want to go back to snf and get same room today Objective Last 24 Hour Vital Signs Date Time Temp Pulse Resp B/P (MAP) Pulse Ox O2 Delivery O2 Flow Rate FiO2 12/19/18 16:00 97.6 88 20 104/44 (64) 95 12/19/18 16:00 87 12/19/18 12:00 97.3 74 20 131/84 (100) 96 12/19/18 12:00 80 12/19/18 10:06 129/66 12/19/18 10:06 79 129/66 12/19/18 09:00 Room Air 12/19/18 08:00 82 12/19/18 08:00 96.3 79 20 129/66 (87) 95 12/19/18 04:00 96.9 87 19 156/86 (109) 98 12/19/18 04:00 90 12/19/18 00:00 98.2 84 19 158/78 (104) 98 12/19/18 00:00 86 Intake and Output 12/18/18 12/19/18 19:00 07:00 Intake Total 530 ml 300 ml Output Total 550 ml 700 ml Balance -20 ml -400 ml Intake Oral 530 ml 300 ml Output Urine Total 550 ml 700 ml # Voids 4 1 # Bowel Movements 1 Laboratory Tests 12/19/18 18:30: White Blood Count 7.6, Red Blood Count 4.15L, Hemoglobin 12.8L, Hematocrit 37.9L , Mean Corpuscular Volume 91, Mean Corpuscular Hemoglobin 30.9, Mean Corpuscular Hemoglobin Concent 33.9, Red Cell Distribution Width 12.9, Platelet Count 266, Mean Platelet Volume 5.6L, Neutrophils (%) (Auto) 58.9, Lymphocytes ( %) (Auto) 28.0, Monocytes (%) (Auto) 10.7H, Eosinophils (%) (Auto) 1.6, Basophils (%) (Auto) 0.9, D-Dimer 0.76H, Sodium Level 141, Potassium Level 3.5, Chloride Level 104, Carbon Dioxide Level 28, Anion Gap 9, Blood Urea Nitrogen 30H, Creatinine 1.6H, Estimat Glomerular Filtration Rate 52.2, Glucose Level 104 , Calcium Level 8.4L, Total Bilirubin 0.4, Aspartate Amino Transf (AST/SGOT) 14L , Alanine Aminotransferase (ALT/SGPT) 21, Alkaline Phosphatase 81, Troponin I 0.000, Pro-B-Type Natriuretic Peptide 122, Total Protein 6.9, Albumin 3.0L, Globulin 3.9, Albumin/Globulin Ratio 0.8L Height (Feet): 5 Height (Inches): 7.00 Weight (Pounds): 250 General Appearance: WD/WN, no apparent distress Neck: supple Cardiovascular: normal rate Respiratory/Chest: lungs clear Abdomen: soft Delfino Diggs MD Dec 19, 2018 23:22
--- NOTE | 2018-12-19 23:43 | NUR ---
NURSE NOTES: Spoke with Robin from [facility] for VQ scan, pls place IV for pt and contact me when ready.
[2018-12-20] VITALS: BP 149/89
[2018-12-20 04:00] VITALS: BP 147/83
--- NOTE | 2018-12-20 06:25 | NUR ---
NURSE NOTES: Endorsed to Dr. Diggs that pt does not have an IV for procedure. LYNDA and ICU RNs have tried multiple times but have been unsuccessful. Will attempt another IV insertion later if pt allows.
--- NOTE | 2018-12-20 07:10 | NUR ---
HAND-OFF: Report given to ALEXANDRIA Short. Plan of care endorsed. Upon rounds, pt verbalized "If I'm just going to get poked, I don't want to do the scan. I just want to go home."
--- NOTE | 2018-12-20 07:15 | NUR ---
NURSE NOTES: Received pt from ALEXANDRIA Ivan in stable condition with no cardiopulmonary distress noted. Pt is awake, sitting on chair next to bed, AAOx4 on RA. Urinal at bedside. No skin alterations noted. Pt noted with no IV access and states "I don't want to get poked again" when I attempted to start IV access. Pt was informed of V/Q scan indication and need for IV access in order to complete procedure; however, pt refused IV access and states "I don't want to do the V/Q scan, I just want to go back home." Pt also states he does not want heparin injection or finger sticks performed on him to avoid getting poked. I explained importance of heparin and blood glucose monitoring- pt still refused. Dr. Diggs will be coming in today to follow up with pt and discuss discharge plans. Will continue plan of care.
[2018-12-20 08:00] VITALS: BP 134/77
[2018-12-20] MEDS: Furosemide 40mg tab ORAL SCH (08:40)
[2018-12-20] MEDS: Heparin 5000 units/ml inj SUBQ SCH (08:40)
[2018-12-20] MEDS: Aspirin Baby 81mg ORAL SCH (09:37)
[2018-12-20] MEDS: Docusate 100mg cap ORAL SCH (09:37)
[2018-12-20] MEDS: Lyrica 25mg cap ORAL SCH (09:39)
[2018-12-20] MEDS: Irbesartan 150mg tablet ORAL SCH (09:50)
--- NOTE | 2018-12-20 10:59 | NUR ---
NURSE NOTES: Spoke to Dr. Diggs over the phone and informed him that patient is refusing IV starts and V/Q scan procedure and is wishing to be discharged as soon as possible. Dr. Diggs asked to place a discharge order for him per patient's wish and to continue home medications at discharge. Orders placed and patient agrees with plan of care.
--- NOTE | 2018-12-20 11:11 | NUR ---
DISCHARGE PLANNED PATIENT IS RETURNING TO [facility] ROOM [facility] T: [phone] FOR NURSE TO NURSE REPORT [facility] HAS BEEN ARRANGED FOR 1300 PMP
--- NOTE | 2018-12-20 11:30 | NUR ---
NURSE NOTES: Tele box removed by Naheed charge nurse (patient is discharged awaiting transportation at this time).
--- NOTE | 2018-12-20 11:31 | NUR ---
NURSE NOTES: gave report to Silva from [facility] over phone.
[2018-12-20 12:00] VITALS: BP 145/90
--- NOTE | 2018-12-20 13:31 | Urology Progress Note ---
Assessment/Plan Assessment/Plan: 1. Penile skin adhesions and mild balanitis. 2. Lower urinary tract symptoms. 3. Benign prostatic hypertrophy. 4. Rule out neurogenic bladder. 5. Microhematuria. monitor clinically flomax added consider release of penile adhesions at some point cysto later, can be done as outpt renal fxn stable Subjective Allergies: Coded Allergies: No Known Allergies (Unverified , 12/13/18) Subjective all noted, feels fair, no new changes, going back to SNF Objective Last 24 Hour Vital Signs Date Time Temp Pulse Resp B/P (MAP) Pulse Ox O2 Delivery O2 Flow Rate FiO2 12/20/18 12:00 98.2 94 18 145/90 (108) 95 12/20/18 09:50 134/77 12/20/18 09:38 82 134/77 12/20/18 09:00 Room Air 12/20/18 08:00 82 12/20/18 08:00 97.3 82 20 134/77 (96) 96 12/20/18 04:00 98.2 84 19 147/83 (104) 99 12/20/18 04:00 84 12/20/18 00:00 80 12/20/18 00:00 98.5 82 19 149/89 (109) 95 12/19/18 21:00 Room Air 12/19/18 20:00 80 12/19/18 16:00 97.6 88 20 104/44 (64) 95 12/19/18 16:00 87 Intake and Output 12/19/18 12/20/18 19:00 07:00 Intake Total 1800 ml 450 ml Output Total 700 ml 350 ml Balance 1100 ml 100 ml Intake Oral 1800 ml 450 ml Output Urine Total 700 ml 350 ml # Bowel Movements 1 Microbiology Date/Time Source Procedure Growth Status 12/13/18 14:50 Nasal Nares MRSA Culture - Final NO METHICILLIN RESISTANT STAPH AUREUS... Complete 12/13/18 14:50 Rectum - Final NO CARBAPENEM-RESISTANT ENTEROBACTERI... Complete Current Medications Medications (Trade) Dose Ordered Sig/Alise Route PRN Reason Start Time Stop Time Status Last Admin Dose Admin Acetaminophen (Tylenol) 650 mg Q6H PRN ORAL Mild Pain/Temp > 100.5 12/13/18 18:30 01/12/19 18:29 Acetaminophen/ Hydrocodone Bitart ([place] 5/325) 1 tab Q6H PRN ORAL Severe Pain (Pain Scale 7-10) 12/13/18 18:30 12/20/18 18:29 12/18/18 09:25 Amitriptyline HCl (Elavil) 25 mg BEDTIME ORAL 12/18/18 21:00 01/17/19 20:59 12/19/18 22:30 Amlodipine Besylate (Norvasc) 5 mg DAILY ORAL 12/14/18 09:00 01/13/19 08:59 12/20/18 09:38 Aspirin (ASA) 81 mg DAILY ORAL 12/14/18 09:00 01/13/19 08:59 12/20/18 09:37 Clonidine HCl (Catapres Tab) 0.1 mg Q8H PRN ORAL for sbp >160 12/14/18 05:15 01/13/19 05:14 Docusate Sodium (Colace) 100 mg TWICE A DAY ORAL 12/14/18 09:00 01/13/19 08:59 12/20/18 09:37 Furosemide (Lasix) 40 mg DAILY ORAL 12/19/18 12:00 01/18/19 11:59 12/19/18 12:36 Gabapentin (Neurontin) 300 mg Q8HR ORAL 12/13/18 22:00 01/12/19 21:59 12/20/18 06:43 Heparin Sodium (Porcine) (Heparin 5000 units/ml) 5,000 units EVERY 12 HOURS SUBQ 12/13/18 21:00 01/12/19 20:59 12/18/18 09:14 Irbesartan (Avapro) 300 mg DAILY ORAL 12/14/18 09:00 01/13/19 08:59 12/20/18 09:50 Lidocaine (Xylocaine 1% MPF 5ml) 1 ml DAILYPRN PRN INJ for blood draw and iv insertio 12/19/18 13:46 01/18/19 13:45 12/19/18 18:25 Lidocaine (Xylocaine 5% cream) 1 applic NEEDED PRN TOPIC For Pain 12/15/18 06:15 01/14/19 06:14 12/19/18 18:14 Magnesium Hydroxide (Mom) 30 ml BIDPRN PRN ORAL Constipation 12/13/18 18:30 01/12/19 18:29 12/18/18 09:25 Pantoprazole (Protonix) 40 mg DAILY ORAL 12/14/18 09:00 01/13/19 08:59 12/20/18 09:37 Pregabalin (Lyrica) 25 mg DAILY ORAL 12/14/18 09:00 01/13/19 08:59 12/20/18 09:39 Tamsulosin HCl (Flomax) 0.4 mg BEDTIME ORAL 12/14/18 21:00 01/13/19 20:59 12/19/18 22:30 Tramadol HCl (Ultram) 50 mg Q8H PRN ORAL Moderate Pain (Pain Scale 4-6) 12/13/18 18:30 12/20/18 18:29 12/14/18 01:15 Laboratory Tests 12/19/18 18:30: White Blood Count 7.6, Red Blood Count 4.15L, Hemoglobin 12.8L, Hematocrit 37.9L , Mean Corpuscular Volume 91, Mean Corpuscular Hemoglobin 30.9, Mean Corpuscular Hemoglobin Concent 33.9, Red Cell Distribution Width 12.9, Platelet Count 266, Mean Platelet Volume 5.6L, Neutrophils (%) (Auto) 58.9, Lymphocytes ( %) (Auto) 28.0, Monocytes (%) (Auto) 10.7H, Eosinophils (%) (Auto) 1.6, Basophils (%) (Auto) 0.9, D-Dimer 0.76H, Sodium Level 141, Potassium Level 3.5, Chloride Level 104, Carbon Dioxide Level 28, Anion Gap 9, Blood Urea Nitrogen 30H, Creatinine 1.6H, Estimat Glomerular Filtration Rate 52.2, Glucose Level 104 , Calcium Level 8.4L, Total Bilirubin 0.4, Aspartate Amino Transf (AST/SGOT) 14L , Alanine Aminotransferase (ALT/SGPT) 21, Alkaline Phosphatase 81, Troponin I 0.000, Pro-B-Type Natriuretic Peptide 122, Total Protein 6.9, Albumin 3.0L, Globulin 3.9, Albumin/Globulin Ratio 0.8L Height (Feet): 5 Height (Inches): 7.00 Weight (Pounds): 261 Objective exam stable renal ultrasound (12/17) negative Ryan Beatty MD Dec 20, 2018 13:31
--- NOTE | 2018-12-20 13:47 | NUR ---
NURSE NOTES: Pt discharged in stable condition accompanied by EMT personnel. Belongings reviewed with patient and taken back with pt. alarm security or surveillance monitor removed earlier and returned to unit.
--- NOTE | 2018-12-20 22:31 | General Progress Note ---
Assessment/Plan Assessment/Plan: Assessment - chest pain - negative stress test - h/o CAD/CT - Hematochezia - needs colonoscopy - constipation, severe - will need group home Rx - HTN - DM Recommendations - d/c planning - outpatient colon Subjective Allergies: Coded Allergies: No Known Allergies (Unverified , 12/13/18) Subjective for discharge today advised to f/u with me as outpatient to set up colonoscopy advised will not receive reminders given my card Objective Last 24 Hour Vital Signs Date Time Temp Pulse Resp B/P (MAP) Pulse Ox O2 Delivery O2 Flow Rate FiO2 12/20/18 12:00 98.2 94 18 145/90 (108) 95 12/20/18 09:50 134/77 12/20/18 09:38 82 134/77 12/20/18 09:00 Room Air 12/20/18 08:00 82 12/20/18 08:00 97.3 82 20 134/77 (96) 96 12/20/18 04:00 98.2 84 19 147/83 (104) 99 12/20/18 04:00 84 12/20/18 00:00 80 12/20/18 00:00 98.5 82 19 149/89 (109) 95 Intake and Output 12/19/18 12/20/18 19:00 07:00 Intake Total 1800 ml 450 ml Output Total 700 ml 350 ml Balance 1100 ml 100 ml Intake Oral 1800 ml 450 ml Output Urine Total 700 ml 350 ml # Bowel Movements 1 Height (Feet): 5 Height (Inches): 7.00 Weight (Pounds): 261 Objective Obese AA man NCAT supple CTA RR abd soft NT ND no edema Evelina Jeffers MD Dec 20, 2018 22:31
--- NOTE | 2018-12-21 07:21 | Discharge Summary ---
Discharge Summary Discharge Summary _ DATE OF ADMISSION: 12/13/2018 DATE OF DISCHARGE: 12/20/2018 DISCHARGED BY: Dr. Diggs REASON FOR ADMISSION: 68 years old male with past medical history of hypertension, diabetes, presented to emergency department with left parasternal nonradiating chest pain , started earlier in the retirement. He denied cough, shortness of breath. No fever or chills. No nausea or vomiting, no diarrhea. Upon evaluation vital signs were stable. EKG revealed sinus rhythm, no acute ischemic changes. Troponin negative. Chest x-ray revealed no acute cardiopulmonary pathology. Laboratory work work-up revealed no leukocytosis , hemoglobin 13.5 hematocrit 41.3. Stable electrolytes. BUN 24, creatinine 1.0. proBNP 146. Patient admitted for further work-up of chest pain to telemetry floor CONSULTANTS: dobby loom chain pegger Dr. Shahid neurologist Dr. Mariscal GI specialist Dr. Jeffers urologist Dr. Beatty heel wheeler Dr. Payne [facility] COURSE: Patient admitted to telemetry floor. Cardiology consult was requested. Serial troponin were negative. Telemetry and EKG revealed no acute ischemic changes. Patient was ruled out for acute myocardial infarction. Echocardiogram demonstrated preserved ejection fraction 60% with mild left ventricular hypertrophy. No evidence of wall motion abnormality. Severe aortic stenosis noted. Right ventricular systolic pressure of 26. Venous duplex bilateral lower extremity revealed no evidence of acute DVT. Patient with bilateral lower extremity pitting edema , started on IV Lasix with close monitoring of volumes , renal parameters and electrolytes. As edema improved, Lasix changed to oral route. Blood pressure was managed with multiple analgesics. Reinforced compliance with the medication regimen. Myocardial perfusion scan test demonstrated no fixed or reversible perfusion defects. Left ventricular ejection fraction estimated to be 70%. Patient had arterial Doppler bilateral lower extremity , which revealed waveform analysis within normal limits at rest bilaterally. Ankle-brachial i index and Doppler tibial artery waveform analysis were within normal limits as well. Antiplatelet therapy with aspirin continued. DVT and GI prophylaxis provided. Patient noted to have a blood in stool and subsequently was seen by GI doctor. Patient will require colonoscopy , as per GI specialist. Bowel regimen instituted. Hemoglobin and hematocrit were closely monitored with goal to keep hemoglobin above 7. Hemoglobin and hematocrit remained stable; prior to discharge hemoglobin 12.8 , hematocrit 27.9. No further hematochezia. Meticulous bowel regimen instituted due to severe constipation. GI specialist recommended to schedule outpatient colonoscopy given that hemoglobin and hematocrit stable, and bleeding resolved. Urologist consulted for penile discomfort. Urologist seen and evaluated patient . Patient had penile skin adhesions and mild balanitis. Urologist recommended monitor clinically. Flomax was added to existing medication regimen. Urologist recommended to consider the release of penile adhesions at some point. Also cystoscopy was recommended, which can be done as an outpatient. Renal parameters were closely monitored and remained stable. Renal ultrasound revealed normal bilateral kidney echogenicity. No hydronephrosis. Renal parameters remained stable. Clerical Investigator seen the patient for chronic foot pain. No open wounds were noted . X-ray of the right foot revealed subtle cortical irregularity along the medial margin of the great toe proximal and distal phalanges adjacent to the interphalangeal joint, possibly related to degenerative change versus subtle age- indeterminate fracture. X-ray of the left food revealed no acute findings. Pain management was addressed. Patient was working with physical therapist. Fall precautions maintained. Neurologist followed . Per neurologist, patient had globally absent deep tendon reflexes. Patient also exhibited right-sided phocomelia. For the last 5 years, patient has had pain in his entire right lower extremity in the form of an one inch line that starts at the level of the hip and goes all the way down to his ankle in the form of a tuxedo pant stripe. Per neurologist, it was difficult to explain the patient's pain syndrome on neuroanatomical basis. It does not follow the course of a nerve root, peripheral nerve, or central nervous system lesion. Neurologist recommended continue current management and follow-up in the office as outpatient in about 2 months. Supportive care provided. Patient clinically stabilized and was ready for discharge FINAL DIAGNOSES: query Chest pain Severe aortic stenosis/per ECHO Bilateral lower extremity edema History of coronary artery disease/CT Hypertension Noncompliance Hematochezia Diabetes mellitus Constipation. Penile adhesions and mild balanitis BPH Right-sided phocomelia. DISCHARGE MEDICATIONS: See Medication Reconciliation list. DISCHARGE INSTRUCTIONS: Patient was discharged to the assisted facility. Outpatient follow-up with GI specialist for colonoscopy and urologist for cystoscopy and release of penile adhesions. Follow up with neurologist in 2 months. Follow up with medical doctor at the facility. I have been assigned to dictate discharge summary for this account. I was not involved in the patient's management. Winifred Maldonado NP Dec 21, 2018 07:21
--- NOTE | 2018-12-21 07:29 | CDS Physician Query ---
Clarification is required for compliance, coding accuracy, and to reflect severity of illness for this patient Dear Isacc Candelario MD Date 12/21/2018 Club Waiter/Waitress/CDS' Name Tin Chapman The patient is a very pleasant unfortunate 68-year-old gentleman with history of hypertension, history of hypoplasia, history of cellulitis of his lower extremities in the past, history of L4 compression fracture who resides at [facility]. The patient called me yesterday in the office stating he has been having chest pain and wanted to go to the hospital. The patient was transferred to the hospital for further evaluation. He admits to intermittent chest pain. Assessment/Plan Assessment/Plan 1. CP, troponins are all negative, stress test was nonischemic 2. Bilateral LE edema On Lasix. Echo Nl EF 3. HTN, on Norvasc, Avapro and change Lasix to 40 po daily 4. Noncompliant 5. Blood in stool. Scheduled for colonoscopy tomorrow by Dr Jeffers Please document the suspected etiology of Chest Pain: [] Aortic dissection [] Acute myocardial infarction [] Acute Coronary Syndrome [] Pericarditis [] Anxiety [] Cancer [] Pneumonia [] Costochondritis [] Pneumothorax [] GERD/Esophagitis [] Pulmonary embolism [] Other: [] Unable to determine Present on Admission: [] Yes [] No [] Clinically Undetermined Physician signature Date Please also document in your Progress Notes and/or Discharge Summary and indicate if the condition was present on admission. NORMA
== END 2018-12-20 13:38 | DRG 313 ==
LOC: EDBD 12:08 → EMR 13:00 → 2E 13:19 → EDBEDREQ 16:58
DX: R07.9 Chest pain, unspecified (principal); K92.1 Melena; I25.10 Atherosclerotic heart disease of native coronary artery without angina pectoris; N48.1 Balanitis; I10 Essential (primary) hypertension; I35.0 Nonrheumatic aortic (valve) stenosis; R60.0 Localized edema; I25.2 Old myocardial infarction; Z91.19 Patient's noncompliance with other medical treatment and regimen; E11.9 Type 2 diabetes mellitus without complications; K59.00 Constipation, unspecified; N40.0 Benign prostatic hyperplasia without lower urinary tract symptoms; Q71.1 Congenital absence of upper arm and forearm with hand present; G62.9 Polyneuropathy, unspecified; F20.9 Schizophrenia, unspecified; R31.29 Other microscopic hematuria
CPT/HCPCS: 36415; 71045; 76770; 78452; 80048; 80053; 81003; 83880; 84484; 85025; 85379; 87081; 93005; 93017; 93306; 93922; 93970; 99285; J2785